=== PATIENT | female | born 1940 | race Caucasian/White ===

== ENCOUNTER 2020-05-26 14:50 | Outpatient (REF) | payer MEDICARE, SELFPAY ==
[2020-05-26 15:39] LABS: MANUAL DIFF FLAG NO
[2020-05-26 15:42] LABS: Basophils Absolute Auto 0.1 X10*3/uL (0.0-0.2); Basophils Percent Auto 1.2 % (0-2); Eosinophils Absolute Auto 0.2 X10*3/uL (0.0-0.4); Eosinophils Percent Auto 2.7 % (0-4); Hematocrit 39.6 % (37-47); Hemoglobin 13.1 g/dl (12.0-16.0); Imm Gran Abs Auto 0.02 X10*3/uL (0.00-0.03); Imm Gran Pct Auto 0.3 % (0.0-0.4); Lymphocytes Absolute Auto 1.6 X10*3/uL (1.2-4.9); Mean Corpuscular HGB Conc 33.1 g/dl (31.0-35.0); Mean Corpuscular Hemoglobin 32.8 pg (27.0-33.0); Mean Corpuscular Volume 99.2 fL (80-98); Mean Platelet Volume 9.5 fL (9.4-12.3); Monocytes Percent Auto 17.2 % (2-11); NRBC Pct Auto 0.5 /100WBC (0.0-0.2); Neutrophils Percent Auto 51.6 % (45-73); Platelet Count 300 X10*3/uL (160-400); Red Blood Count 3.99 X10*6/uL (4.20-5.50); Red Cell Distribution Width 13.1 % (11.0-16.0); White Blood Count 5.9 X10*3/uL (4.8-10.8)
[2020-05-26 15:50] LABS: Estimated Average Glucose 128 mg/dL; Hemoglobin A1c % 6.1 %
[2020-05-26 16:26] LABS: Creatinine Urine 96.31 mg/dL; Microalbum/Creatinine Ratio Ur 7.2 ug/mg cr
[2020-05-26 17:14] LABS: Alanine Aminotransferase 27 U/L (0-31); Albumin Level 4.2 g/dL (3.5-5.0); Alkaline Phosphatase 56 U/L (39-117); Anion Gap 12 (12-20); Aspartate Amino Transferase 22 U/L (5-31); Bilirubin Total 0.4 mg/dL (0.0-1.0); Blood Urea Nitrogen 25 mg/dL (9-16); Carbon Dioxide 28 mmol/L (22-29); Chloride 103 mmol/L (96-108); Estimated Glomerular Filt Rate 60; Glucose Random 96 mg/dL (60-115); Potassium 4.4 mmol/l (3.3-5.1); Sodium 139 mmol/L (135-145); Total Protein 6.6 g/dL (6.5-8.0)
== END 2020-05-26 14:51 | disposition home or self-care (01) ==
LOC: HO.LAB 14:50
PROVIDERS: PCP Internal Medicine; Visit Provider Internal Medicine
DX: E11.9 Type 2 diabetes mellitus without complications (principal); I10 Essential (primary) hypertension; E78.00 Pure hypercholesterolemia, unspecified
CPT/HCPCS: 36415; 80053; 82043; 83036; 85025

== ENCOUNTER 2020-10-02 11:12 | Outpatient (REF) | payer MEDICARE, SELFPAY ==
[2020-10-02 13:58] LABS: MANUAL DIFF FLAG NO
[2020-10-02 14:06] LABS: Glucose Urine UA NEG (NEG); Leukocyte Esterase Urine NEG (NEG); Nitrite Urine NEG (NEG); Specific Gravity - Urine <= 1.005 (1.005-1.025); Urine Blood NEG (NEG); Urine Ketones NEG (NEG); Urine Protein NEG (NEG-TRACE)
[2020-10-02 14:07] LABS: Appearance Urine CLEAR; Color Urine YELLOW
[2020-10-02 14:09] LABS: Basophils Absolute Auto 0.1 X10*3/uL (0.0-0.2); Basophils Percent Auto 0.7 % (0-2); Eosinophils Percent Auto 0.1 % (0-4); Hematocrit 40.2 % (37-47); Hemoglobin 12.9 g/dl (12.0-16.0); Imm Gran Abs Auto 0.01 X10*3/uL (0.00-0.03); Imm Gran Pct Auto 0.1 % (0.0-0.4); Lymphocytes Absolute Auto 1.5 X10*3/uL (1.2-4.9); Lymphocytes Percent Auto 20.9 % (20-40); Mean Corpuscular HGB Conc 32.1 g/dl (31.0-35.0); Mean Corpuscular Hemoglobin 32.6 pg (27.0-33.0); Mean Corpuscular Volume 101.5 fL (80-98); Mean Platelet Volume 9.8 fL (9.4-12.3); Monocytes Percent Auto 14.7 % (2-11); Neutrophils Absolute Auto 4.4 X10*3/uL (2.0-8.3); Neutrophils Percent Auto 63.5 % (45-73); Platelet Count 295 X10*3/uL (160-400); Red Blood Count 3.96 X10*6/uL (4.20-5.50); Red Cell Distribution Width 12.9 % (11.0-16.0)
[2020-10-02 14:15] LABS: Estimated Average Glucose 131 mg/dL; Hemoglobin A1c % 6.2 %
[2020-10-02 14:33] LABS: Alanine Aminotransferase 25 U/L (0-31); Albumin Level 4.1 g/dL (3.5-5.0); Alkaline Phosphatase 58 U/L (39-117); Anion Gap 14 (12-20); Aspartate Amino Transferase 20 U/L (5-31); Bilirubin Total 0.5 mg/dL (0.0-1.0); Blood Urea Nitrogen 22 mg/dL (9-16); Calcium 9.4 mg/dL (8.4-10.2); Carbon Dioxide 29 mmol/L (22-29); Chloride 102 mmol/L (96-108); Cholesterol 176 mg/dL; Estimated Glomerular Filt Rate > 60; Glucose Random 74 mg/dL (60-115); Potassium 4.3 mmol/L (3.3-5.1); Sodium 141 mmol/L (135-145); Total Protein 6.7 g/dL (6.5-8.0)
[2020-10-02 15:47] LABS: Creatinine Urine 29.68 mg/dL; Microalbumin Urine < 5.0 mg/L
== END 2020-10-02 11:13 | disposition home or self-care (01) ==
LOC: HO.10HDL 11:12
PROVIDERS: Visit Provider Internal Medicine
DX: E11.9 Type 2 diabetes mellitus without complications (principal); I10 Essential (primary) hypertension; J30.1 Allergic rhinitis due to pollen
CPT/HCPCS: 36415; 80053; 81003; 82043; 82465; 83036; 85025

== ENCOUNTER 2021-03-05 09:43 | Outpatient (REF) | payer MEDICARE, SELFPAY ==
[2021-03-05 10:14] LABS: MANUAL DIFF FLAG NO
[2021-03-05 10:23] LABS: Basophils Absolute Auto 0.1 X10*3/uL (0.0-0.2); Hematocrit 37.3 % (37-47); Hemoglobin 12.5 g/dl (12.0-16.0); Imm Gran Abs Auto 0.01 X10*3/uL (0.00-0.03); Imm Gran Pct Auto 0.1 % (0.0-0.4); Lymphocytes Absolute Auto 1.3 X10*3/uL (1.2-4.9); Lymphocytes Percent Auto 17.8 % (20-40); Mean Corpuscular HGB Conc 33.5 g/dl (31.0-35.0); Mean Corpuscular Hemoglobin 32.6 pg (27.0-33.0); Mean Corpuscular Volume 97.4 fL (80-98); Mean Platelet Volume 9.6 fL (9.4-12.3); Monocytes Percent Auto 13.6 % (2-11); Neutrophils Absolute Auto 4.7 X10*3/uL (2.0-8.3); Neutrophils Percent Auto 67.5 % (45-73); Platelet Count 303 X10*3/uL (160-400); Red Blood Count 3.83 X10*6/uL (4.20-5.50)
[2021-03-05 10:55] LABS: Alanine Aminotransferase 27 U/L (0-31); Alkaline Phosphatase 53 U/L (39-117); Anion Gap 13 (12-20); Aspartate Amino Transferase 21 U/L (5-31); Bilirubin Total 0.3 mg/dL (0.0-1.0); Blood Urea Nitrogen 26 mg/dL (9-16); Calcium 9.6 mg/dL (8.4-10.2); Carbon Dioxide 27 mmol/L (22-29); Chloride 106 mmol/L (96-108); Estimated Glomerular Filt Rate > 60; Glucose Random 114 mg/dL (60-115); Potassium 4.6 mmol/L (3.3-5.1); Sodium 141 mmol/L (135-145); Total Protein 6.3 g/dL (6.5-8.0)
[2021-03-05 11:05] LABS: Estimated Average Glucose 131 mg/dL; Hemoglobin A1c % 6.2 %
== END 2021-03-05 09:44 | disposition home or self-care (01) ==
LOC: HO.10HDL 09:43
PROVIDERS: Visit Provider Internal Medicine
DX: E11.9 Type 2 diabetes mellitus without complications (principal); I10 Essential (primary) hypertension
CPT/HCPCS: 36415; 80053; 83036; 85025

== ENCOUNTER 2021-09-19 14:09 | Outpatient (REF) | payer MEDICARE, SELFPAY ==
[2021-09-19 14:26] LABS: MANUAL DIFF FLAG NO
[2021-09-19 14:57] LABS: Basophils Absolute Auto 0.1 X10*3/uL (0.0-0.2); Eosinophils Absolute Auto 0.2 X10*3/uL (0.0-0.4); Eosinophils Percent Auto 2.8 % (0-4); Hematocrit 38.5 % (37.0-47.0); Hemoglobin 12.5 g/dl (12.0-16.0); Imm Gran Abs Auto 0.02 X10*3/uL (0.00-0.03); Imm Gran Pct Auto 0.3 % (0.0-0.4); Lymphocytes Absolute Auto 1.5 X10*3/uL (1.2-4.9); Lymphocytes Percent Auto 21.8 % (20-40); Mean Corpuscular HGB Conc 32.5 g/dl (31.0-35.0); Mean Corpuscular Hemoglobin 32.1 pg (27.0-33.0); Mean Platelet Volume 9.6 fL (9.4-12.3); Monocytes Absolute Auto 0.9 X10*3/uL (0.1-1.2); Monocytes Percent Auto 13.1 % (2-11); Neutrophils Absolute Auto 4.1 x10*3/uL (2.0-8.3); Platelet Count 303 X10*3/uL (160-400); Red Blood Count 3.89 X10*6/uL (4.20-5.50); Red Cell Distribution Width 13.2 % (11.0-16.0); White Blood Count 6.7 X10*3/uL (4.8-10.8)
[2021-09-19 15:05] LABS: Estimated Average Glucose 120 mg/dL; Hemoglobin A1c % 5.8 %
[2021-09-19 15:42] LABS: Creatinine Urine 82.07 mg/dL; Microalbum/Creatinine Ratio Ur 12.1 ug/mg cr
[2021-09-19 15:46] LABS: Vitamin D 25-OH Total 71.9 ng/mL (>30)
[2021-09-19 16:11] LABS: Alanine Aminotransferase 24 U/L (0-31); Albumin Level 4.3 g/dL (3.5-5.0); Alkaline Phosphatase 56 U/L (39-117); Anion Gap 15 (12-20); Aspartate Amino Transferase 23 U/L (5-31); Bilirubin Total 0.4 mg/dL (0.0-1.0); Blood Urea Nitrogen 25 mg/dL (9-16); Calcium 10.8 mg/dL (8.4-10.2); Carbon Dioxide 27 mmol/L (22-29); Chloride 102 mmol/L (96-108); Cholesterol 199 mg/dL; Estimated Glomerular Filt Rate > 60; Glucose Random 96 mg/dL (60-115); Potassium 4.4 mmol/L (3.3-5.1); Sodium 140 mmol/L (135-145); Total Protein 6.9 g/dL (6.5-8.0)
== END 2021-09-19 14:10 | disposition home or self-care (01) ==
LOC: HO.LAB 14:09
PROVIDERS: PCP Internal Medicine; Visit Provider Internal Medicine
DX: E11.9 Type 2 diabetes mellitus without complications (principal); I10 Essential (primary) hypertension; J45.909 Unspecified asthma, uncomplicated; M81.0 Age-related osteoporosis without current pathological fracture
CPT/HCPCS: 36415; 80053; 82043; 82306; 82465; 83036; 85025

== ENCOUNTER 2022-01-23 11:12 | Outpatient (REF) | payer MEDICARE, SELFPAY ==
[2022-01-23 13:39] LABS: Basophils Absolute Auto 0.1 X10*3/uL (0.0-0.2); Basophils Percent Auto 1.1 % (0-2); Eosinophils Absolute Auto 0.2 X10*3/uL (0.0-0.4); Eosinophils Percent Auto 2.4 % (0-4); Hematocrit 37.2 % (37.0-47.0); Hemoglobin 12.4 g/dl (12.0-16.0); Imm Gran Abs Auto 0.02 X10*3/uL (0.00-0.03); Imm Gran Pct Auto 0.3 % (0.0-0.4); Lymphocytes Absolute Auto 1.3 X10*3/uL (1.2-4.9); Lymphocytes Percent Auto 19.8 % (20-40); MANUAL DIFF FLAG NO; Mean Corpuscular HGB Conc 33.3 g/dl (31.0-35.0); Mean Corpuscular Volume 98.9 fL (80.0-98.0); Mean Platelet Volume 9.8 fL (9.4-12.3); Monocytes Absolute Auto 0.9 X10*3/uL (0.1-1.2); Monocytes Percent Auto 13.1 % (2-11); Neutrophils Absolute Auto 4.2 x10*3/uL (2.0-8.3); Neutrophils Percent Auto 63.3 % (45-73); Platelet Count 293 X10*3/uL (160-400); Red Blood Count 3.76 X10*6/uL (4.20-5.50); Red Cell Distribution Width 13.2 % (11.0-16.0); White Blood Count 6.7 X10*3/uL (4.8-10.8)
[2022-01-23 13:52] LABS: Estimated Average Glucose 123 mg/dL; Hemoglobin A1c % 5.9 %
[2022-01-23 14:00] LABS: Alanine Aminotransferase 23 U/L (0-31); Albumin Level 4.1 g/dL (3.5-5.0); Alkaline Phosphatase 52 U/L (39-117); Anion Gap 10 (12-20); Aspartate Amino Transferase 21 U/L (5-31); Bilirubin Total 0.5 mg/dL (0.0-1.0); Blood Urea Nitrogen 24 mg/dL (9-16); Calcium 9.4 mg/dL (8.4-10.2); Carbon Dioxide 29 mmol/L (22-29); Chloride 103 mmol/L (96-108); Estimated Glomerular Filt Rate > 60; Glucose Random 109 mg/dL (60-115); Potassium 4.3 mmol/L (3.3-5.1); Sodium 138 mmol/L (135-145); Total Protein 6.6 g/dL (6.5-8.0)
== END 2022-01-23 11:13 | disposition home or self-care (01) ==
LOC: HO.10HDL 11:12
PROVIDERS: Visit Provider Internal Medicine
DX: E11.9 Type 2 diabetes mellitus without complications (principal); I10 Essential (primary) hypertension
CPT/HCPCS: 36415; 80053; 83036; 85025

== ENCOUNTER 2022-04-24 12:58 | Outpatient (REF) | payer MEDICARE, SELFPAY ==
[2022-04-24 14:10] LABS: MANUAL DIFF FLAG NO
[2022-04-24 14:14] LABS: Basophils Absolute Auto 0.1 X10*3/uL (0.0-0.2); Basophils Percent Auto 0.8 % (0-2); Eosinophils Absolute Auto 0.2 X10*3/uL (0.0-0.4); Eosinophils Percent Auto 3.1 % (0-4); Hematocrit 37.9 % (37.0-47.0); Hemoglobin 12.9 g/dl (12.0-16.0); Imm Gran Abs Auto 0.02 X10*3/uL (0.00-0.03); Imm Gran Pct Auto 0.3 % (0.0-0.4); Lymphocytes Absolute Auto 1.3 X10*3/uL (1.2-4.9); Mean Corpuscular Hemoglobin 32.9 pg (27.0-33.0); Mean Corpuscular Volume 96.7 fL (80.0-98.0); Mean Platelet Volume 10.1 fL (9.4-12.3); Monocytes Absolute Auto 0.9 X10*3/uL (0.1-1.2); Monocytes Percent Auto 12.7 % (2-11); Neutrophils Absolute Auto 4.6 x10*3/uL (2.0-8.3); Neutrophils Percent Auto 65.1 % (45-73); Platelet Count 318 X10*3/uL (160-400); Red Blood Count 3.92 X10*6/uL (4.20-5.50); Red Cell Distribution Width 12.7 % (11.0-16.0); White Blood Count 7.1 X10*3/uL (4.8-10.8)
[2022-04-24 14:29] LABS: Estimated Average Glucose 123 mg/dL; Hemoglobin A1c % 5.9 %
[2022-04-24 14:42] LABS: Creatinine Urine 68.74 mg/dL; Microalbum/Creatinine Ratio Ur 10.1 ug/mg cr
[2022-04-24 14:44] LABS: Alanine Aminotransferase 17 U/L (0-31); Albumin Level 4.2 g/dL (3.5-5.0); Alkaline Phosphatase 52 U/L (39-117); Anion Gap 17 (12-20); Aspartate Amino Transferase 20 U/L (5-31); Bilirubin Total 0.4 mg/dL (0.0-1.0); Blood Urea Nitrogen 23 mg/dL (9-16); Calcium 10.4 mg/dL (8.4-10.2); Carbon Dioxide 26 mmol/L (22-29); Chloride 101 mmol/L (96-108); Cholesterol 193 mg/dL; Estimated Glomerular Filt Rate > 60; Glucose Random 96 mg/dL (60-115); Potassium 4.2 mmol/L (3.3-5.1); Sodium 140 mmol/L (135-145); Total Protein 6.8 g/dL (6.5-8.0)
== END 2022-04-24 12:59 | disposition home or self-care (01) ==
LOC: HO.10HDL 12:58
PROVIDERS: Visit Provider Internal Medicine
DX: E11.9 Type 2 diabetes mellitus without complications (principal); E78.00 Pure hypercholesterolemia, unspecified; I10 Essential (primary) hypertension
CPT/HCPCS: 36415; 80053; 82043; 82465; 83036; 85025

== ENCOUNTER 2022-10-16 11:55 | Outpatient (REF) | payer MEDICARE, SELFPAY ==
[2022-10-16 14:12] LABS: MANUAL DIFF FLAG NO
[2022-10-16 14:22] LABS: Basophils Absolute Auto 0.1 X10*3/uL (0.0-0.2); Hematocrit 38.1 % (37.0-47.0); Hemoglobin 12.6 g/dl (12.0-16.0); Imm Gran Abs Auto 0.02 X10*3/uL (0.00-0.03); Imm Gran Pct Auto 0.3 % (0.0-0.4); Lymphocytes Absolute Auto 1.3 X10*3/uL (1.2-4.9); Mean Corpuscular HGB Conc 33.1 g/dl (31.0-35.0); Mean Corpuscular Hemoglobin 32.2 pg (27.0-33.0); Mean Corpuscular Volume 97.4 fL (80.0-98.0); Monocytes Absolute Auto 0.9 X10*3/uL (0.1-1.2); Monocytes Percent Auto 12.7 % (2-11); Neutrophils Absolute Auto 4.8 x10*3/uL (2.0-8.3); Platelet Count 292 X10*3/uL (160-400); Red Blood Count 3.91 X10*6/uL (4.20-5.50); Red Cell Distribution Width 13.1 % (11.0-16.0); White Blood Count 7.1 X10*3/uL (4.8-10.8)
[2022-10-16 14:41] LABS: Estimated Average Glucose 117 mg/dL; Hemoglobin A1c % 5.7 %
[2022-10-16 14:45] LABS: Alanine Aminotransferase 16 U/L (0-31); Alkaline Phosphatase 52 U/L (39-117); Anion Gap 14 (12-20); Aspartate Amino Transferase 19 U/L (5-31); Bilirubin Total 0.4 mg/dL (0.0-1.0); Blood Urea Nitrogen 20 mg/dL (9-16); Calcium 9.8 mg/dL (8.4-10.2); Carbon Dioxide 29 mmol/L (22-29); Chloride 105 mmol/L (96-108); Estimated Glomerular Filt Rate > 60; Glucose Random 84 mg/dL (60-115); Potassium 4.5 mmol/L (3.3-5.1); Sodium 143 mmol/L (135-145); Total Protein 6.4 g/dL (6.5-8.0)
[2022-10-16 15:13] LABS: Creatinine Urine 38.38 mg/dL
[2022-10-16 15:17] LABS: Folate 15.2 ng/mL (> or = 4.0); Free T4 (Free Thyroxine) 0.93 ng/dL (0.71-1.85); Thyroid Stimulating Hormone 1.28 uIU/mL (0.32-4.0); Vitamin B12 1261 pg/mL (200-900)
== END 2022-10-16 11:56 | disposition home or self-care (01) ==
LOC: HO.10HDL 11:55
PROVIDERS: Visit Provider Internal Medicine
DX: E11.9 Type 2 diabetes mellitus without complications (principal); I10 Essential (primary) hypertension; K21.9 Gastro-esophageal reflux disease without esophagitis
CPT/HCPCS: 36415; 80053; 82043; 82607; 82746; 83036; 84439; 84443; 85025

== ENCOUNTER 2023-03-26 16:41 | Emergency (ER) | payer MEDICARE, SELFPAY ==
--- NOTE | ~2023-03-26 | MR_ITS ---
EXAMINATION: MRI ORBIT WITHOUT AND WITH CONTRAST CLINICAL INFORMATION: Abnormal CT of the left orbit. COMPARISON: CT face 03/26/2023. TECHNIQUE: Multiplanar multisequence MRI of the orbit was performed without and with contrast. A total of 7 mL Gadavist was intravenously administered. FINDINGS: There is redemonstration of a well-defined 10 mm smoothly marginated lesion within the left orbit just medial to the superior oblique muscle. The lesion demonstrates diffuse homogeneous enhancement on the postcontrast acquisition. There is no surrounding infiltration or mass effect. The orbits are otherwise unremarkable. A smaller but similar signal intensity lesion is seen within the medial aspect of the left orbit just adjacent to the medial rectus muscle measuring up to 5 mm a third similar signal intensity lesion is seen along the medial aspect of the left orbit adjacent to the medial rectus muscle. No optic nerve signal abnormality is seen. There are bilateral lens replacements. The known nasal bone fractures are better defined on the prior facial bone CT. There is no acute infarction, hemorrhage, or parenchymal mass. Moderate to severe chronic microangiopathic changes are seen in the cerebral white matter in addition to diffuse brain parenchymal volume loss. No enhancing intracranial lesions are seen. MR/MR orbits face neck wo/w con IMPRESSION: 1. The previously described 10 mm lesion within the left orbit just medial to the superior oblique muscle demonstrates diffuse homogeneous enhancement and is most compatible with a varix with the additional considerations being cavernous hemangioma or schwannoma but considered less likely. 2 additional but smaller lesions with similar signal intensity are seen within the right and left orbit likely representing additional varices. No optic nerve signal abnormality is seen. 2. No acute intracranial abnormality. Moderate to severe chronic microangiopathic changes and diffuse brain parenchymal volume loss. 3. Known nasal bone fractures are better defined on the prior facial bone CT.
--- NOTE | ~2023-03-26 | CT_ITS ---
EXAMINATION: CT HEAD WITHOUT CONTRAST CT FACE WITHOUT CONTRAST CT CERVICAL SPINE WITHOUT CONTRAST CLINICAL INFORMATION: Fall and head injury. COMPARISON: No relevant prior imaging. TECHNIQUE: [employer] images were obtained. CT imaging of the head, face, and cervical spine was performed without contrast. Data was reformatted into multiplanar images at the acquisition workstation. This CT examination was performed using dose optimization techniques as appropriate, including one or more of the following: Automated exposure control, iterative reconstruction, and adjustment of technique factors (mA and/or kVp) according to patient size (this includes techniques or standardized protocols for targeted exams where dose is matched to indication/reason for exam). Fleischner Society criteria for the followup of incidental pulmonary nodules was implemented if appropriate. DLP: 1242 mGy-cm. FINDINGS: Head: There is a hematoma of the frontal scalp. The underlying calvarium is intact. No acute intracranial hemorrhage or abnormal extra-axial collection. No intracranial mass effect or midline shift. Lateral and third ventricles are proportionate to the subarachnoid spaces. No hydrocephalus. Scattered nonspecific foci of hypoattenuation are visualized within the periventricular white matter. Romero-white matter distribution is otherwise preserved and there is no evidence of acute territorial infarct. Face: There is an acute comminuted fractures nasal bones. Zygomatic arches and pterygoid processes are intact. No acute mandibular fracture. 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 Mild to moderate paranasal sinus disease primarily affecting the ethmoid air cells. There is an ovoid soft tissue density lesion located within the retro-orbital fat along the upper inner aspect of the left globe best visualized on coronal image 76 of 209 series 23 measuring approximately 1 cm in maximal diameter. Cervical spine: There is 3 mm anterolisthesis of C5 on C6 and 2 mm anterolisthesis of C4-C5. Bridging bone fuses multiple consecutive vertebral segments within the cervical spine. Specifically the C2-C3 7 vertebra are fused. Consequently there is advanced junctional spondylosis above the level of C7-T1 and the atlantodental joint including both C1-C2 facet joints. Grossly no spinal canal compromise. No evidence of acute fracture. No identifiable epidural hematoma. Visualized soft tissues of the neck are unremarkable. Lung apices are clear. CT/CT cervical spine wo IV con IMPRESSION: Head: There is a hematoma of the frontal scalp. The underlying calvarium is intact. No acute intracranial hemorrhage. There are scattered chronic small vessel ischemic changes within the periventricular white matter. No evidence of acute territorial infarct. Maxillofacial: There is an acute comminuted fracture involving the nasal bones. There is an ovoid soft tissue density lesion located within the retro-orbital fat along the upper inner aspect of the left globe. 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 The possibility of a schwannoma can also be considered. Correlation with prior imaging is recommended if available. Otherwise a dedicated MRI of the orbits can be obtained without and with contrast for better anatomic characterization of this finding. Cervical spine: There is no evidence of acute fracture and no posttraumatic spinal subluxation. There is however advanced junctional spondylosis as described above. Bridging bone fuses multiple consecutive vertebral segments within the cervical spine. Specifically the C2-C7 vertebra are fused. Consequently there is severe junctional spondylosis above and below the fused segments at the levels of C1-C2 and C7-T1. Grossly no spinal canal compromise.
[2023-03-26 17:05] VITALS: BP 165/95; BP 179/90; PULSE 82; PULSE 85; RESP 18; TEMP 36.9; O2SAT 100; O2SAT 96; BMI 25.6
--- NOTE | 2023-03-26 17:23 | ED.GENADULT ---
HPI - General Adult General Chief complaint: Fall Stated complaint: Mechanical fall from standing w/ headstrike Time Seen by Provider: 03/26/23 17:03 Source: patient and EMS Mode of arrival: EMS Limitations: no limitations History of Present Illness HPI narrative: 82-year-old female Brought in by ambulance for evaluation after a mechanical fall. patient live in the apartment alone independently usually use a cane patient tripped on object on the floor fell forward hitting her face causing small cut on the nose bridge and active bleeding, no LOC, no CP, no SOB, Patient declined any syncopal episodes. No abdominal pain no extremities pain or deformity. Patient declined using AC. Related Data Allergies Allergy/AdvReac Type Severity Reaction Status Date / Time gabapentin [From NEURONTIN] Allergy Unknown RASH Unverified 03/23/20 15:31 Review of Systems Review of Systems: all other systems are reviewed and are negative Constitutional: Reports as per HPI and Reports no additional constitutional complaints Eyes: Reports as per HPI and Reports no additional eye complaints Reports system reviewed and no additional complaints, except as documented Cardiovascular: Reports as per HPI and Reports no additional cardiovascular complaints Respiratory: Reports as per HPI and Reports no additional respiratory complaints Gastrointestinal: Reports as per HPI and Reports no additional gastrointestinal complaints Genitourinary: Reports no additional female genitourinary complaints Musculoskeletal: Reports no additional musculoskeletal complaints Skin/Breast: Reports system reviewed and no additional complaints, except as docu Psychiatric: Reports no additional psychiatric complaints Endocrine: Reports no additional endocrine complaints Hematologic/Lymphatic: Reports no additional hematologic/lymphatic complaints Allergic/Immunologic: Reports no additional allergic/immunologic complaints Reports system reviewed and no additional complaints, except as documented and Reports Abnormal speech present [facility] [place] Social History Social History Advance Directives: No Advance Directives Information Provided: No Physical Exam ED Vital Signs: Vital Signs - 24 hr 03/26/23 23:24 03/27/23 06:48 03/27/23 13:15 Temperature 98.0 F 98.8 F Pulse Rate 75 74 74 Respiratory Rate 16 16 16 Blood Pressure 160/83 H 149/71 H 151/73 H Pulse Oximetry 98 100 99 Oxygen Delivery Method Room Air Room Air Room Air BMI result Body Mass Index 25.6 Vital signs have been reviewed and appear to be correct. Blood pressure elevated. Heart rate normal. Respiratory rate normal. Temperature normal. Oxygen saturation normal. Appearance: Alert. Oriented X3. No acute distress. Head: bilateral raccoon eyes, 3 x 4 cm area of forehead hematoma. Eyes: PERRLA. EOMI. Conjunctiva and sclera normal. Eyelids normal. ENT: 0.5 cm laceration at the nasal bridge with active arterial bleeding. Neck: Normal inspection. Neck supple. FROM. No adenopathy. Thyroid Normal. No meningeal signs. No neck mass noted. CVS: Normal heart rate and rhythm. Heart sound normal. No murmurs noted. Pulses normal throughout. Respiratory: No respiratory distress. Painless inspiration. Breath sounds normal. No wheezes/rales/rhonchi noted. Chest nontender. No accessory muscle usage noted or decreased air movement noted. Abdomen: Soft and nontender. Bowel sounds normal in all 4 quadrants. No distention noted. No organomegaly noted. No visible injury noted. Back: No CVA tenderness. Full range of motion noted. Skin: Skin warm and dry. Normal skin color. Normal skin turgor. No rashes/lesions/lacerations noted. Extremities: No lower extremity edema. Extremities exhibit normal range of motion. Extremities nontender. Neuro: Oriented X 3. Cranial nerve exam: II-XII are grossly intact No motor deficit. No sensory deficit. Reflexes normal. Course Reevaluation(s) Reevaluation #1: 82-year-old female came in after sustained a mechanical fall causing nose fracture and a bleeding nasal bridge laceration that required immediate repair to stop the bleeding, CT of the maxillofacial is revealing retro-orbital left lesion that further MRI was recommended, patient will be kept in the emergency department under physician observation for possible also placement. Will start physician observation. Time: 19:07 Reevaluation #2: patient was seen and evaluated by case management /PT patient can go home with arrange for VNA. 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 Patient fully understood my instruction and will contact her PCP tomorrow. Time: 19:07 Medications Administered Discontinued Medications Generic Name Dose Route Start Last Admin Trade Name Freq PRN Reason Stop Dose Admin Acetaminophen 650 mg 03/27/23 04:23 03/27/23 04:28 Acetaminophen 325 Mg Tablet PO 09/21/23 04:24 650 mg ONCE ONE Administration Gadobutrol 7.5 ml 03/27/23 14:47 03/27/23 14:47 Gadobutrol 7.5 Ml Vial IVPUSH 03/27/23 14:48 7 ml ONCE ONE Administration Procedures Laceration Laceration 1: Site: face ( At the nose bridge) Size (cm): 1 Description: linear Depth: [id number] Local Anesthetic: lidocaine 1% Amount of anesthesia used (mL): 3 Skin layer closed with: nylon Size (cm): 6-0 Number of sutures: 2 Technique: simple, interrupted Medical Decision Making Differential Diagnosis Differential Diagnoses: The differential diagnosis associated with the presentation includes ( Mechanical fall, intracranial bleed, skull fracture, facial fracture, cervical spine injury.) Admission/Observation Consideration of admission/observation: Escalation of care including admission/observation considered Lab Data MDM Lab Attestation statement: I reviewed the patient's lab results. Independent Interpretation I performed an independent interpretation of an: CT Scan ( Head/maxillofacial/ cervical spine:Head: There is a hematoma of the frontal scalp. The underlying calvarium is intact. No acute intracranial hemorrhage. There are scattered chronic small vessel ischemic changes within the periventricular white matter. No evidence of acute territorial infarct. Ma) Radiology Impression Discussion of test interpretation with radiology: I have reviewed the radiologist's reading. Discharge Plan Discharge Clinical Impression: Closed fracture nasal bone, Closed head injury, Mass of eye, left Patient Disposition: Home, Self-Care Instructions: Nasal Fracture (ED) Additional Instructions: follow-up with your PCP to get an manager of construction referral for abnormal MRI that show left eye mass. Referrals: Tyson Goff MD [Primary Care Provider] -
--- NOTE | 2023-03-26 18:00 | PC.NURSE ---
Pt nasal area sutured at bedside with MD, pt cleaned of bloody cloths and face cleaned up. Pt reporting no pain despite facial bruising and sutures. She is A/Ox4. moving all extremities equal, no numbness/tingling present
[2023-03-26 18:24] VITALS: BP 167/88; PULSE 84; RESP 16; TEMP 36.6; O2SAT 100
--- NOTE | 2023-03-26 21:33 | PC.NURSE ---
Pt ambulated with walker, gait belt, tech and RN. Pt ambulated with a steady gait. Pt reported no dizziness, lightheadedness, or pain. Pt did have some trouble seeing where she was going.Pt stated she usually has some trouble seeing, but it is increased with swelling and bruising around her eyes. Pt was assited back to bed, given clean linens, and has a purewick in place. Pt has an IV in the right AC. Pt is A&Ox4, GCS 15 at this time. Pt stated she thinks it would be beefcial to stay overnight and be evaluated by PT in the morning, as she lives alone at home. I discussed this with Dr Jean-Baptiste who agreed with this plan. Pt is also scheduled to get an MRI tomorrow morning.
[2023-03-26 23:24] VITALS: BP 160/83; PULSE 75; RESP 16; O2SAT 98
[2023-03-27] MEDS: Acetaminophen 325 MG TABLET 650 MG PO (04:28)
[2023-03-27 06:48] VITALS: BP 149/71; PULSE 74; RESP 16; TEMP 36.7; O2SAT 100
--- NOTE | 2023-03-27 08:14 | PC.NURSE ---
assumed care of pt at 0700. report taken from GEORGINA Mcnally. pt a&o x4, pleasant, calm, and cooperative. pt appears significantly bruised to face with swelling around both eyes. pt stitched up at bridge of nose. not bleeding. pt denies any pain. purewick in place. awaiting breakfast tray. pt concerned about who can pick her up when she gets discharged. asked this RN to look up neighbor's phone number. Jesus Huffman (pt neighbor): [phone]
--- NOTE | 2023-03-27 09:38 | PC.NURSE ---
pt's neighbor, Jesus Barrow, came to visit pt. pt gave consent to update neighbor on pt care plan/status. phone number previously documented.
[2023-03-27 13:15] VITALS: BP 151/73; PULSE 74; RESP 16; TEMP 37.1; O2SAT 99
--- NOTE | 2023-03-27 14:25 | PC.NURSE ---
pt off unit to MRI
[2023-03-27] MEDS: gadobutroL 7.5 ML VIAL IVPUSH (14:47)
--- NOTE | 2023-03-27 15:53 | PC.NURSE ---
pt back from MRI and given bed bath by nena Ford. bed linen full change. call parker within pt reach. all needs met jael.
--- NOTE | 2023-03-27 16:13 | MHC.CM.ED ---
Referrals for home VNA made: awaiting agency acceptance at this time.
--- NOTE | 2023-03-28 09:57 | MHC.CM.ED ---
Pt left the ED on 03/27: PT recommended home services: no orders by ED provider. Call placed to pt's PCP, Dr. Goff: They will sign/write for service orders from [facility]. [facility] correspondence w/NA on above. Awaiting determination.
== END 2023-03-27 19:19 | disposition home or self-care (01) ==
PROVIDERS: Emergency Provider Emergency Medicine; PCP Internal Medicine
DX: S02.2XXA Fracture of nasal bones, initial encounter for closed fracture (principal); S09.90XA Unspecified injury of head, initial encounter; S01.81XA Laceration without foreign body of other part of head, initial encounter; R51.9 Headache, unspecified; M54.2 Cervicalgia; H57.12 Ocular pain, left eye; W01.10XA Fall on same level from slipping, tripping and stumbling with subsequent striking against unspecified object, initial encounter; Y93.9 Activity, unspecified; Y92.9 Unspecified place or not applicable; Y99.9 Unspecified external cause status
CPT/HCPCS: 12051; 70450; 70486; 70543; 72125; 96374; 97161; 99284; 99285; A9585

== ENCOUNTER 2023-09-29 16:04 | Outpatient (REF) | payer MEDICARE, SELFPAY ==
[2023-09-29 16:32] LABS: MANUAL DIFF FLAG NO
[2023-09-29 17:24] LABS: Appearance Urine Clear; Color Urine Yellow; Glucose Urine UA Negative (Negative); Leukocyte Esterase Urine Negative (Negative); Nitrite Urine Negative (Negative); Specific Gravity - Urine 1.015 (1.005-1.025); Urine Blood Negative (Negative); Urine Ketones 15 mg/dL (Negative); Urine Protein Negative (Neg-Trace)
[2023-09-29 17:53] LABS: Basophils Absolute Auto 0.1 X10*3/uL (0.0-0.2); Eosinophils Absolute Auto 0.1 X10*3/uL (0.0-0.4); Eosinophils Percent Auto 2.4 % (0-4); Hematocrit 38.6 % (37.0-47.0); Hemoglobin 12.6 g/dl (12.0-16.0); Imm Gran Abs Auto 0.02 X10*3/uL (0.00-0.03); Imm Gran Pct Auto 0.3 % (0.0-0.4); Lymphocytes Absolute Auto 1.3 X10*3/uL (1.2-4.9); Lymphocytes Percent Auto 22.2 % (20-40); Mean Corpuscular HGB Conc 32.6 g/dl (31.0-35.0); Mean Corpuscular Hemoglobin 32.4 pg (27.0-33.0); Mean Corpuscular Volume 99.2 fL (80.0-98.0); Mean Platelet Volume 10.2 fL (9.4-12.3); Monocytes Absolute Auto 0.7 X10*3/uL (0.1-1.2); Monocytes Percent Auto 12.7 % (2-11); Neutrophils Absolute Auto 3.5 x10*3/uL (2.0-8.3); Neutrophils Percent Auto 61.4 % (45-73); Platelet Count 279 X10*3/uL (160-400); Red Blood Count 3.89 X10*6/uL (4.20-5.50); Red Cell Distribution Width 13.1 % (11.0-16.0); White Blood Count 5.8 X10*3/uL (4.8-10.8)
[2023-09-29 18:04] LABS: Estimated Average Glucose 100 mg/dL; Hemoglobin A1c % 5.1 % (<6.0)
[2023-09-29 18:24] LABS: Creatinine Urine 47.44 mg/dL; Microalbum/Creatinine Ratio Ur 23.1 ug/mg cr (<30)
[2023-09-29 18:26] LABS: B Type Natriuretic Peptide 67 pg/mL (<100)
[2023-09-29 18:33] LABS: Alanine Aminotransferase 20 U/L (0-31); Albumin Level 4.2 g/dL (3.5-5.0); Alkaline Phosphatase 68 U/L (39-117); Anion Gap 13 (12-20); Aspartate Amino Transferase 24 U/L (5-31); Bilirubin Total 0.5 mg/dL (0.0-1.0); Blood Urea Nitrogen 20 mg/dL (9-16); Calcium 9.9 mg/dL (8.4-10.2); Carbon Dioxide 28 mmol/L (22-29); Chloride 104 mmol/L (96-108); Cholesterol 207 mg/dL (<200); Estimated Glomerular Filt Rate > 60; Glucose Random 102 mg/dL (60-115); Sodium 141 mmol/L (135-145); Total Protein 7.2 g/dL (6.5-8.0)
[2023-09-29 18:47] LABS: Thyroid Stimulating Hormone 1.95 uIU/mL (0.32-4.0)
== END 2023-09-29 16:05 | disposition home or self-care (01) ==
LOC: HO.LAB 16:04
PROVIDERS: PCP Internal Medicine; Visit Provider Internal Medicine
DX: E11.9 Type 2 diabetes mellitus without complications (principal); I10 Essential (primary) hypertension; R60.0 Localized edema; R82.90 Unspecified abnormal findings in urine
CPT/HCPCS: 36415; 80053; 81003; 82043; 82465; 82570; 83036; 83880; 84443; 85025; 87086

== ENCOUNTER 2024-03-22 06:18 | Outpatient (REF) | payer SELFPAY ==
[2024-03-22 06:10] LABS: MANUAL DIFF FLAG NO
[2024-03-22 06:58] LABS: Basophils Absolute Auto 0.1 X10*3/uL (0.0-0.2); Basophils Percent Auto 0.8 % (0-2); Eosinophils Absolute Auto 0.1 X10*3/uL (0.0-0.4); Eosinophils Percent Auto 2.1 % (0-4); Hematocrit 36.7 % (37.0-47.0); Hemoglobin 12.7 g/dl (12.0-16.0); Imm Gran Abs Auto 0.03 X10*3/uL (0.00-0.03); Imm Gran Pct Auto 0.5 % (0.0-0.4); Lymphocytes Absolute Auto 1.6 X10*3/uL (1.2-4.9); Lymphocytes Percent Auto 24.6 % (20-40); Mean Corpuscular HGB Conc 34.6 g/dl (31.0-35.0); Mean Corpuscular Hemoglobin 32.6 pg (27.0-33.0); Mean Corpuscular Volume 94.1 fL (80.0-98.0); Mean Platelet Volume 10.2 fL (9.4-12.3); Monocytes Absolute Auto 1.1 X10*3/uL (0.1-1.2); Monocytes Percent Auto 16.7 % (2-11); Neutrophils Absolute Auto 3.5 x10*3/uL (2.0-8.3); Neutrophils Percent Auto 55.3 % (45-73); Platelet Count 343 X10*3/uL (160-400); Red Cell Distribution Width 13.2 % (11.0-16.0); White Blood Count 6.3 X10*3/uL (4.8-10.8)
[2024-03-22 07:27] LABS: Anion Gap 16 (12-20); Blood Urea Nitrogen 25 mg/dL (9-16); Calcium 9.5 mg/dL (8.4-10.2); Carbon Dioxide 21 mmol/L (22-29); Chloride 110 mmol/L (96-108); Estimated Glomerular Filt Rate > 60; Glucose Random 141 mg/dL (60-115); Potassium 3.8 mmol/L (3.3-5.1); Sodium 143 mmol/L (135-145)
== END 2024-03-22 06:19 | disposition home or self-care (01) ==
LOC: HO.MMNH1L 06:18
PROVIDERS: Visit Provider Internal Medicine
DX: I10 Essential (primary) hypertension (principal)
CPT/HCPCS: 36415; 80048; 85025

== ENCOUNTER 2024-04-19 06:46 | Outpatient (REF) | payer MEDICARE, SELFPAY ==
[2024-04-19 07:14] LABS: Basophils Percent Auto 0.4 % (0-2); Eosinophils Absolute Auto 0.1 X10*3/uL (0.0-0.4); Eosinophils Percent Auto 2.4 % (0-4); Hematocrit 32.3 % (37.0-47.0); Hemoglobin 10.7 g/dl (12.0-16.0); Imm Gran Abs Auto 0.01 X10*3/uL (0.00-0.03); Imm Gran Pct Auto 0.2 % (0.0-0.4); Lymphocytes Absolute Auto 1.5 X10*3/uL (1.2-4.9); Lymphocytes Percent Auto 32.8 % (20-40); MANUAL DIFF FLAG SCAN; Mean Corpuscular HGB Conc 33.1 g/dl (31.0-35.0); Mean Corpuscular Hemoglobin 33.1 pg (27.0-33.0); Monocytes Percent Auto 23.1 % (2-11); Neutrophils Absolute Auto 1.9 x10*3/uL (2.0-8.3); Neutrophils Percent Auto 41.1 % (45-73); Platelet Count 245 X10*3/uL (160-400); Red Blood Count 3.23 X10*6/uL (4.20-5.50); Red Cell Distribution Width 14.1 % (11.0-16.0); SCAN SMEAR FLAG 1; White Blood Count 4.5 X10*3/uL (4.8-10.8)
[2024-04-19 07:23] LABS: Anion Gap 10 (12-20); Blood Urea Nitrogen 20 mg/dL (9-16); Calcium 8.4 mg/dL (8.4-10.2); Carbon Dioxide 25 mmol/L (22-29); Chloride 109 mmol/L (96-108); Estimated Glomerular Filt Rate > 60; Glucose Random 105 mg/dL (60-115); Potassium 3.7 mmol/L (3.3-5.1); Sodium 140 mmol/L (135-145)
[2024-04-19 08:05] LABS: SLIDE REVIEW VERIFIED
== END 2024-04-19 06:47 | disposition home or self-care (01) ==
LOC: HO.MMNH1L 06:46
PROVIDERS: Visit Provider Internal Medicine
DX: I10 Essential (primary) hypertension (principal)
CPT/HCPCS: 36415; 80048; 85025

== ENCOUNTER 2024-04-21 06:07 | Outpatient (REF) | payer MEDICARE, SELFPAY ==
[2024-04-21 07:25] LABS: Free T4 (Free Thyroxine) 0.89 ng/dL (0.71-1.85); Thyroid Stimulating Hormone 2.21 uIU/mL (0.32-4.0)
[2024-04-21 07:29] LABS: Folate 7.2 ng/mL (> or = 4.0); Vitamin B12 595 pg/mL (200-900)
== END 2024-04-21 06:08 | disposition home or self-care (01) ==
LOC: HO.MMNH1L 06:07
PROVIDERS: Visit Provider Internal Medicine
DX: G93.40 Encephalopathy, unspecified (principal); E11.9 Type 2 diabetes mellitus without complications
CPT/HCPCS: 36415; 82607; 82746; 84439; 84443

== ENCOUNTER 2024-04-26 06:26 | Outpatient (REF) | payer MEDICARE, SELFPAY ==
[2024-04-26 07:06] LABS: Hematocrit 34.2 % (37.0-47.0); Hemoglobin 11.4 g/dl (12.0-16.0); Mean Corpuscular HGB Conc 33.3 g/dl (31.0-35.0); Mean Corpuscular Hemoglobin 32.9 pg (27.0-33.0); Mean Corpuscular Volume 98.6 fL (80.0-98.0); Mean Platelet Volume 9.6 fL (9.4-12.3); Platelet Count 258 X10*3/uL (160-400); Red Blood Count 3.47 X10*6/uL (4.20-5.50); Red Cell Distribution Width 14.1 % (11.0-16.0)
[2024-04-26 07:19] LABS: Anion Gap 13 (12-20); Blood Urea Nitrogen 27 mg/dL (9-16); Carbon Dioxide 25 mmol/L (22-29); Chloride 104 mmol/L (96-108); Estimated Glomerular Filt Rate 42; Glucose Random 123 mg/dL (60-115); Potassium 3.4 mmol/L (3.3-5.1); Sodium 139 mmol/L (135-145)
[2024-04-26 07:46] LABS: Band Neutrophils Percent 6 % (3-5); Lymphocytes Percent Manual 10 % (20-40); Monocytes Percent Manual 10 % (2-11); Neutrophils Percent Manual 74 % (45-73)
[2024-04-26 07:47] LABS: Platelet Estimate NORMAL (NORMAL); Platelet Morphology Comment NORMAL; RBC Morphology NORMAL
== END 2024-04-26 06:27 | disposition home or self-care (01) ==
LOC: HO.MMNH1L 06:26
PROVIDERS: Visit Provider Internal Medicine
DX: I10 Essential (primary) hypertension (principal)
CPT/HCPCS: 36415; 80048; 85007; 85025; 85027

== ENCOUNTER 2024-05-02 21:00 | Outpatient (REF) | payer MEDICARE, SELFPAY ==
[2024-05-03 10:53] LABS: CDiff Gene PCR NEGATIVE (Negative)
== END 2024-05-02 21:01 | disposition home or self-care (01) ==
LOC: HO.MMNH1L 21:00
PROVIDERS: Visit Provider Internal Medicine
DX: U07.1 COVID-19 (principal); G93.40 Encephalopathy, unspecified
CPT/HCPCS: 87493

== ENCOUNTER 2024-05-03 06:23 | Outpatient (REF) | payer MEDICARE, SELFPAY ==
[2024-05-03 06:02] LABS: MANUAL DIFF FLAG NO
[2024-05-03 07:02] LABS: Anion Gap 14 (12-20); Blood Urea Nitrogen 22 mg/dL (9-16); Calcium 9.4 mg/dL (8.4-10.2); Carbon Dioxide 23 mmol/L (22-29); Chloride 108 mmol/L (96-108); Estimated Glomerular Filt Rate > 60; Glucose Random 115 mg/dL (60-115); Potassium 3.5 mmol/L (3.3-5.1); Sodium 141 mmol/L (135-145)
[2024-05-03 07:08] LABS: Basophils Absolute Auto 0.1 X10*3/uL (0.0-0.2); Basophils Percent Auto 0.6 % (0-2); Hematocrit 31.9 % (37.0-47.0); Hemoglobin 10.7 g/dl (12.0-16.0); Imm Gran Abs Auto 0.17 X10*3/uL (0.00-0.03); Imm Gran Pct Auto 1.9 % (0.0-0.4); Lymphocytes Absolute Auto 1.3 X10*3/uL (1.2-4.9); Lymphocytes Percent Auto 14.6 % (20-40); Mean Corpuscular HGB Conc 33.5 g/dl (31.0-35.0); Mean Corpuscular Hemoglobin 32.3 pg (27.0-33.0); Mean Corpuscular Volume 96.4 fL (80.0-98.0); Mean Platelet Volume 9.3 fL (9.4-12.3); Monocytes Absolute Auto 1.5 X10*3/uL (0.1-1.2); Monocytes Percent Auto 16.5 % (2-11); Neutrophils Absolute Auto 5.8 x10*3/uL (2.0-8.3); Neutrophils Percent Auto 66.4 % (45-73); Platelet Count 555 X10*3/uL (160-400); Red Blood Count 3.31 X10*6/uL (4.20-5.50); Red Cell Distribution Width 13.3 % (11.0-16.0); White Blood Count 8.8 X10*3/uL (4.8-10.8)
== END 2024-05-03 06:24 | disposition home or self-care (01) ==
LOC: HO.MMNH1L 06:23
PROVIDERS: Visit Provider Internal Medicine
DX: U07.1 COVID-19 (principal); G93.40 Encephalopathy, unspecified
CPT/HCPCS: 36415; 80048; 85025

== ENCOUNTER 2024-05-05 05:55 | Outpatient (REF) | payer MEDICARE, SELFPAY ==
[2024-05-05 10:49] LABS: CDiff Gene PCR NEGATIVE (Negative)
== END 2024-05-05 05:56 | disposition home or self-care (01) ==
LOC: HO.MMNH1L 05:55
PROVIDERS: Visit Provider Internal Medicine
DX: U07.1 COVID-19 (principal); G93.40 Encephalopathy, unspecified; R62.7 Adult failure to thrive
CPT/HCPCS: 87493

== ENCOUNTER 2024-05-10 06:23 | Outpatient (REF) | payer MEDICARE, SELFPAY ==
[2024-05-10 07:05] LABS: Basophils Absolute Auto 0.1 X10*3/uL (0.0-0.2); Basophils Percent Auto 1.1 % (0-2); Eosinophils Absolute Auto 0.3 X10*3/uL (0.0-0.4); Eosinophils Percent Auto 4.5 % (0-4); Hematocrit 31.3 % (37.0-47.0); Hemoglobin 10.5 g/dl (12.0-16.0); Imm Gran Abs Auto 0.06 X10*3/uL (0.00-0.03); Imm Gran Pct Auto 0.9 % (0.0-0.4); Lymphocytes Absolute Auto 1.8 X10*3/uL (1.2-4.9); Lymphocytes Percent Auto 26.8 % (20-40); MANUAL DIFF FLAG SCAN; Mean Corpuscular HGB Conc 33.5 g/dl (31.0-35.0); Mean Corpuscular Hemoglobin 32.9 pg (27.0-33.0); Mean Corpuscular Volume 98.1 fL (80.0-98.0); Monocytes Absolute Auto 1.3 X10*3/uL (0.1-1.2); Monocytes Percent Auto 20.1 % (2-11); Neutrophils Absolute Auto 3.1 x10*3/uL (2.0-8.3); Neutrophils Percent Auto 46.6 % (45-73); Platelet Count 523 X10*3/uL (160-400); Red Blood Count 3.19 X10*6/uL (4.20-5.50); Red Cell Distribution Width 13.8 % (11.0-16.0); SCAN SMEAR FLAG 1; White Blood Count 6.6 X10*3/uL (4.8-10.8)
[2024-05-10 07:38] LABS: SLIDE REVIEW VERIFIED
[2024-05-10 08:08] LABS: Anion Gap 11 (12-20); Blood Urea Nitrogen 12 mg/dL (9-16); Calcium 9.1 mg/dL (8.4-10.2); Carbon Dioxide 26 mmol/L (22-29); Chloride 108 mmol/L (96-108); Estimated Glomerular Filt Rate > 60; Glucose Random 88 mg/dL (60-115); Potassium 3.7 mmol/L (3.3-5.1); Sodium 141 mmol/L (135-145)
== END 2024-05-10 06:24 | disposition home or self-care (01) ==
LOC: HO.MMNH1L 06:23
PROVIDERS: Visit Provider Internal Medicine
DX: I10 Essential (primary) hypertension (principal)
CPT/HCPCS: 36415; 80048; 85025

== ENCOUNTER 2024-05-17 06:08 | Outpatient (REF) | payer MEDICARE, SELFPAY ==
[2024-05-17 06:31] LABS: Basophils Absolute Auto 0.1 X10*3/uL (0.0-0.2); Eosinophils Absolute Auto 0.8 X10*3/uL (0.0-0.4); Eosinophils Percent Auto 15.5 % (0-4); Hematocrit 32.6 % (37.0-47.0); Hemoglobin 10.7 g/dl (12.0-16.0); Imm Gran Abs Auto 0.02 X10*3/uL (0.00-0.03); Imm Gran Pct Auto 0.4 % (0.0-0.4); Lymphocytes Absolute Auto 1.4 X10*3/uL (1.2-4.9); Lymphocytes Percent Auto 26.5 % (20-40); MANUAL DIFF FLAG SCAN; Mean Corpuscular HGB Conc 32.8 g/dl (31.0-35.0); Mean Corpuscular Hemoglobin 32.5 pg (27.0-33.0); Mean Corpuscular Volume 99.1 fL (80.0-98.0); Mean Platelet Volume 9.3 fL (9.4-12.3); Monocytes Absolute Auto 1.3 X10*3/uL (0.1-1.2); Monocytes Percent Auto 23.9 % (2-11); Neutrophils Absolute Auto 1.7 x10*3/uL (2.0-8.3); Neutrophils Percent Auto 32.7 % (45-73); Platelet Count 335 X10*3/uL (160-400); Red Blood Count 3.29 X10*6/uL (4.20-5.50); Red Cell Distribution Width 14.6 % (11.0-16.0); SCAN SMEAR FLAG 1; White Blood Count 5.2 X10*3/uL (4.8-10.8)
[2024-05-17 07:07] LABS: Anion Gap 14 (12-20); Blood Urea Nitrogen 15 mg/dL (9-16); Calcium 8.6 mg/dL (8.4-10.2); Carbon Dioxide 22 mmol/L (22-29); Chloride 110 mmol/L (96-108); Estimated Glomerular Filt Rate > 60; Glucose Random 88 mg/dL (60-115); Potassium 3.7 mmol/L (3.3-5.1); Sodium 142 mmol/L (135-145)
[2024-05-17 07:40] LABS: SLIDE REVIEW VERIFIED
== END 2024-05-17 06:09 | disposition home or self-care (01) ==
LOC: HO.MMNH1L 06:08
PROVIDERS: Visit Provider Internal Medicine
DX: I10 Essential (primary) hypertension (principal)
CPT/HCPCS: 36415; 80048; 85025

== ENCOUNTER 2024-05-24 05:44 | Outpatient (REF) | payer MEDICARE, SELFPAY ==
[2024-05-24 06:34] LABS: Anion Gap 13 (12-20); Blood Urea Nitrogen 15 mg/dL (9-16); Calcium 9.1 mg/dL (8.4-10.2); Carbon Dioxide 23 mmol/L (22-29); Chloride 110 mmol/L (96-108); Estimated Glomerular Filt Rate > 60; Glucose Random 79 mg/dL (60-115); Potassium 3.8 mmol/L (3.3-5.1); Sodium 142 mmol/L (135-145)
[2024-05-24 07:04] LABS: Basophils Absolute Auto 0.1 X10*3/uL (0.0-0.2); Eosinophils Absolute Auto 0.1 X10*3/uL (0.0-0.4); Eosinophils Percent Auto 1.5 % (0-4); Hematocrit 32.2 % (37.0-47.0); Hemoglobin 10.7 g/dl (12.0-16.0); Imm Gran Abs Auto 0.01 X10*3/uL (0.00-0.03); Imm Gran Pct Auto 0.2 % (0.0-0.4); Lymphocytes Absolute Auto 1.4 X10*3/uL (1.2-4.9); Lymphocytes Percent Auto 26.8 % (20-40); MANUAL DIFF FLAG SCAN; Mean Corpuscular HGB Conc 33.2 g/dl (31.0-35.0); Mean Corpuscular Hemoglobin 32.5 pg (27.0-33.0); Mean Corpuscular Volume 97.9 fL (80.0-98.0); Mean Platelet Volume 9.7 fL (9.4-12.3); Monocytes Absolute Auto 1.1 X10*3/uL (0.1-1.2); Monocytes Percent Auto 21.7 % (2-11); Neutrophils Absolute Auto 2.6 x10*3/uL (2.0-8.3); Neutrophils Percent Auto 48.8 % (45-73); Platelet Count 277 X10*3/uL (160-400); Red Blood Count 3.29 X10*6/uL (4.20-5.50); Red Cell Distribution Width 14.5 % (11.0-16.0); SCAN SMEAR FLAG 1; White Blood Count 5.3 X10*3/uL (4.8-10.8)
[2024-05-24 07:32] LABS: SLIDE REVIEW VERIFIED
== END 2024-05-24 05:45 | disposition home or self-care (01) ==
LOC: HO.MMNH1L 05:44
PROVIDERS: Visit Provider Internal Medicine
DX: I10 Essential (primary) hypertension (principal)
CPT/HCPCS: 36415; 80048; 85025

== ENCOUNTER 2024-05-31 05:48 | Outpatient (REF) | payer MEDICARE, SELFPAY ==
[2024-05-31 06:17] LABS: Basophils Absolute Auto 0.1 X10*3/uL (0.0-0.2); Eosinophils Absolute Auto 0.6 X10*3/uL (0.0-0.4); Eosinophils Percent Auto 12.3 % (0-4); Hematocrit 36.9 % (37.0-47.0); Hemoglobin 11.9 g/dl (12.0-16.0); Imm Gran Abs Auto 0.01 X10*3/uL (0.00-0.03); Imm Gran Pct Auto 0.2 % (0.0-0.4); Lymphocytes Absolute Auto 1.5 X10*3/uL (1.2-4.9); Lymphocytes Percent Auto 28.7 % (20-40); MANUAL DIFF FLAG SCAN; Mean Corpuscular HGB Conc 32.2 g/dl (31.0-35.0); Mean Corpuscular Hemoglobin 32.2 pg (27.0-33.0); Mean Corpuscular Volume 99.7 fL (80.0-98.0); Mean Platelet Volume 9.6 fL (9.4-12.3); Monocytes Absolute Auto 1.1 X10*3/uL (0.1-1.2); Monocytes Percent Auto 20.9 % (2-11); Neutrophils Absolute Auto 1.9 x10*3/uL (2.0-8.3); Neutrophils Percent Auto 36.9 % (45-73); Platelet Count 290 X10*3/uL (160-400); Red Cell Distribution Width 13.9 % (11.0-16.0); SCAN SMEAR FLAG 1; White Blood Count 5.1 X10*3/uL (4.8-10.8)
[2024-05-31 07:06] LABS: Anion Gap 15 (12-20); Blood Urea Nitrogen 16 mg/dL (9-16); Calcium 9.5 mg/dL (8.4-10.2); Carbon Dioxide 25 mmol/L (22-29); Chloride 105 mmol/L (96-108); Estimated Glomerular Filt Rate > 60; Glucose Random 98 mg/dL (60-115); Sodium 141 mmol/L (135-145)
[2024-05-31 07:25] LABS: SLIDE REVIEW VERIFIED
== END 2024-05-31 05:49 | disposition home or self-care (01) ==
LOC: HO.MMNH1L 05:48
PROVIDERS: Visit Provider Internal Medicine
DX: I10 Essential (primary) hypertension (principal)
CPT/HCPCS: 36415; 80048; 85025

== ENCOUNTER 2024-07-16 05:37 | Outpatient (REF) | payer MEDICARE, SELFPAY ==
[2024-07-16 05:47] LABS: Appearance Urine Clear; Color Urine Yellow; Glucose Urine UA 250 mg/dL (Negative); Leukocyte Esterase Urine Negative (Negative); Nitrite Urine Negative (Negative); Urine Blood Negative (Negative); Urine Ketones Negative (Negative); Urine Protein Trace mg/dL (Neg-Trace)
== END 2024-07-16 05:38 | disposition home or self-care (01) ==
LOC: HO.MMNH3L 05:37
PROVIDERS: Visit Provider Nurse Practitioner
DX: Z13.89 Encounter for screening for other disorder (principal)
CPT/HCPCS: 81003; 87086

== ENCOUNTER 2024-07-16 11:50 | Emergency (ER) | payer MEDICARE, SELFPAY ==
[2024-07-16] VITALS (18 sets, daily range): BP systolic 118–154; BP diastolic 66–78; PULSE 80–117; RESP 12–29; TEMP 36.7–36.9; O2SAT 86–100; BMI 20.5
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
--- NOTE | 2024-07-16 12:16 | ECG_ITS ---
Test Reason : AMS Blood Pressure : */* mmHG Vent. Rate : 94 BPM Atrial Rate : 94 BPM P-R Int : 172 ms QRS Dur : 126 ms QT Int : 394 ms P-R-T Axes : 66 -57 47 degrees QTcB Int : 492 ms Normal sinus rhythm Left axis deviation Right bundle branch block Inferior infarct , age undetermined Abnormal ECG When compared with ECG of 11-Jun-2011 07:23, No significant changes seen Referred By: Laurent Bell Electronically Signed By: BRITTANY ALVAREZ
--- NOTE | 2024-07-16 12:41 | PC.NURSE ---
Zyprexa was held per attending as patient has stopped screaming and is calm
[2024-07-16 13:27] LABS: MANUAL DIFF FLAG NO
[2024-07-16 13:30] LABS: Basophils Absolute Auto 0.1 X10*3/uL (0.0-0.2); Basophils Percent Auto 0.7 % (0-2); Eosinophils Absolute Auto 0.3 X10*3/uL (0.0-0.4); Eosinophils Percent Auto 2.8 % (0-4); Hematocrit 37.5 % (37.0-47.0); Hemoglobin 12.9 g/dl (12.0-16.0); Imm Gran Abs Auto 0.04 X10*3/uL (0.00-0.03); Imm Gran Pct Auto 0.4 % (0.0-0.4); Lymphocytes Absolute Auto 1.1 X10*3/uL (1.2-4.9); Lymphocytes Percent Auto 10.9 % (20-40); Mean Corpuscular HGB Conc 34.4 g/dl (31.0-35.0); Mean Corpuscular Hemoglobin 33.1 pg (27.0-33.0); Mean Corpuscular Volume 96.2 fL (80.0-98.0); Mean Platelet Volume 8.7 fL (9.4-12.3); Monocytes Absolute Auto 0.9 X10*3/uL (0.1-1.2); Monocytes Percent Auto 9.3 % (2-11); Neutrophils Absolute Auto 7.7 x10*3/uL (2.0-8.3); Neutrophils Percent Auto 75.9 % (45-73); Platelet Count 325 X10*3/uL (160-400); Red Cell Distribution Width 13.2 % (11.0-16.0); White Blood Count 10.1 X10*3/uL (4.8-10.8)
[2024-07-16 13:47] LABS: Ethanol < 10 mg/dL
[2024-07-16 13:57] LABS: Alanine Aminotransferase 23 U/L (0-31); Albumin Level 3.5 g/dL (3.5-5.0); Anion Gap 13 (12-20); Aspartate Amino Transferase 20 U/L (5-31); Bilirubin Direct 0.1 mg/dL (0.0-0.5); Bilirubin Total 0.4 mg/dL (0.0-1.0); Blood Urea Nitrogen 14 mg/dL (9-16); C Reactive Protein 1.41 mg/dL (< or = 0.50); Calcium 9.5 mg/dL (8.4-10.2); Carbon Dioxide 25 mmol/L (22-29); Chloride 110 mmol/L (96-108); Estimated Glomerular Filt Rate > 60; Glucose Random 103 mg/dL (60-115); Magnesium 1.7 mg/dL (1.6-2.6); Potassium 3.3 mmol/L (3.3-5.1); Sodium 145 mmol/L (135-145); Total Protein 6.6 g/dL (6.5-8.0)
[2024-07-16 14:09] LABS: Alkaline Phosphatase 69 U/L (39-117)
[2024-07-16] MEDS: OLANZapine ODT 10 MG TAB.RAPDIS 5 MG TRANSLINGU (15:27)
[2024-07-16] MEDS: OLANZapine 10 MG VIAL 5 MG IM (16:00)
--- NOTE | 2024-07-16 17:50 | MHC.CARE ---
CARE team spoke with Antonio at [facility]. He reports pt was transported to [facility] on 06/21 secondary to acute change in behavior, increased paranoia, destroying other pt?s belongings and impulsive shouting. Pt was not seen by crisis due to her dx of dementia. Psychiatry determined pt did not meet IPLOC and she was discharged back to facility. CARE team spoke with staff at [facility] Clarice- Anu and GEORGINA Suazo. They report pt is pleasantly confused at baseline. She is usually very quiet and has ?normal? interactions with staff and other pts. There has been a recent increase in aggressive behaviors. Pt has been observed spitting at and hitting ?everything in her way?. Staff report they have observed an increase in pt?s paranoia. She believes everyone is out to kill her. Pt resumed taking seroquel two days ago after being off it for about a month. Staff report pt has poor appetite. She has experienced a 16 lb weight loss in the past 3 months. They report her sleep is intermittent. Pt has no known family, no regular visitors. They have Rhonda Ceja listed as emergency contact but unclear of her relation to pt.? Contacted Rhonda, emergency contact @ [phone] and [phone]. left VM.
[2024-07-16] MEDS: risperiDONE 1 MG TABLET PO (18:58)
--- NOTE | 2024-07-16 20:30 | MHC.CARE ---
Plan is for Pt to be seen by psychiatry. made aware.
--- NOTE | 2024-07-16 21:05 | MHC.EDTECH ---
Addendum entered by Daisy Miranda 07/16/24 21:08: red, nonopened bed sore was found on coccyx bone, allevyn pad was placed Original Note: pt was found incontinent of urine, lanette care was given, new hospital gown and linen were given, call parker within reach
[2024-07-16] MEDS: LORazepam 2 MG/ML VIAL IM (21:25)
[2024-07-16] MEDS: Haloperidol Lactate 5 MG/ML VIAL 2.5 MG IM (21:26)
--- NOTE | 2024-07-16 23:21 | MHC.EDTECH ---
chnaged patient and full bed, purewick attached.
[2024-07-17 00:10] VITALS: BP 143/68; PULSE 115; RESP 17; O2SAT 99
--- NOTE | 2024-07-17 00:14 | PC.NURSE ---
Straight catheterization. Small amount of urine, thick, very foul-smelling, luiz/brown color. Specimen sent to lab for analysis. UTI.
[2024-07-17 00:27] LABS: Appearance Urine Turbid; Color Urine Brown; Glucose Urine UA Negative (Negative); Leukocyte Esterase Urine Large (3+) (Negative); Nitrite Urine Positive (Negative); PH 6.5 (5.0-9.0); Specific Gravity - Urine 1.025 (1.005-1.025); UMIC TRIGGER UACC YES; Urine Blood Large (3+) (Negative); Urine Ketones Trace mg/dL (Negative); Urine Protein 100 (2+) mg/dL (Neg-Trace)
[2024-07-17 00:34] LABS: Amphetamine Screen Urine Not Detected (Not Detect); Barbiturates, Urine Not Detected (Not Detect); Benzodiazepines Screen Urine Not Detected (Not Detect); Buprenorphine Scr Not Detected (Not Detect); Cannabinoid Screen Urine Not Detected (Not Detect); Cocaine Screen Urine Not Detected (Not Detect); Fentanyl, urine Not Detected (Not Detect); Methadone Screen, Urine Not Detected (Not Detect); Opiate Screen Urine Not Detected (Not Detect); Oxycodone Screen Urine Not Detected (Not Detect); Phencyclidine Screen Urine Not Detected (Not Detect)
[2024-07-17 00:36] LABS: Bacteria Urine 4+ (None Seen); Calcium Oxalate Crystals Urine Present; Hyaline Casts Urine >20 /LPF (0-2); RBC Urine >20 /HPF (0-2); UACC Culture Trigger YES; WBC Urine >50 /HPF (0-5)
[2024-07-17] MEDS: cefTRIAXone sodium 1 GM, Lidocaine HCl 1 % MPF 2.1 ML IM ×2 (01:28→17:25)
[2024-07-17 04:04] VITALS: BP 119/65; PULSE 90; RESP 16; TEMP 36.4; O2SAT 100
--- NOTE | 2024-07-17 04:29 | PC.NURSE ---
this rn assumed care of pt @ 0300. pt sleeing at this time oxy mask noted to be in place spo2 100% this rn turned o2 down to 2 lmp pt remains 100%
[2024-07-17 04:36] VITALS: O2SAT 100
[2024-07-17 06:52] VITALS: TEMP 35.6
[2024-07-17 08:31] VITALS: BP 103/65; PULSE 96; RESP 16; TEMP 36.5; O2SAT 97
--- NOTE | 2024-07-17 08:54 | PC.NURSE ---
Pt will transferred to ED Overflow unit with awaiting psych consult. RN to RN report completed with Teressa
--- NOTE | 2024-07-17 11:00 | PHA.MEDREC ---
Addendum entered by Jazmyne Siu RPh 07/17/24 11:08: [facility] reviewed Original Note: Pharmacy Consult ? Medication Reconciliation Pharmacy has completed the medication reconciliation. List from Dinesh Oneil.
--- NOTE | 2024-07-17 11:20 | PC.NURSE ---
patient awoken from sleep and sat up in bed. patient verbalized need to use bathroom. bedside commode used d/t pt medication administration and possible unsteady gait. Patient aaox1-2. patient 2 max assist stand and pivot to commode. bed cleaned, patient cleaned and repositioned back to bed with max assistance. purwik placed back onto patient for safety and skin integrity.
--- NOTE | 2024-07-17 12:56 | PC.NURSE ---
patient somnelent/sleeping with even unlabored respirations. Patient arousable to verbal stimuli. patient states im just tired . patient had a cup of gingerale and apple juice mixed and drank with straw and RN assistance.
--- NOTE | 2024-07-17 16:59 | PC.NURSE ---
patient sleeping most of afternoon but waking self to use commode. patient now alert and oriented to place and self but still confused on situation remains calm cooperative and pleasant at this time.
--- NOTE | 2024-07-17 17:44 | PC.NURSE ---
patient sitting upright in bed eating dinner well independently. patient eating salad, pasta/meatball and gingerale. Patient speaking of needing her mothers phone number and her purse. 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 Patient alert to self and place but not situation or time. Patient remains cooperative and calm.
[2024-07-17] MEDS: OLANZapine ODT 10 MG TAB.RAPDIS TRANSLINGU (19:24)
--- NOTE | 2024-07-17 19:26 | PC.NURSE ---
Patient sitting in room in bed screaming and moaning to call my mother, I broke my leg. Patient unable to be redirected, notified. Zyprexa given, waiting on Risperidone at this time from pharmacy
[2024-07-17] MEDS: risperiDONE 1 MG TABLET PO (19:31)
[2024-07-17 20:53] VITALS: BP 150/69; PULSE 105; RESP 18; TEMP 37.1; O2SAT 100
--- NOTE | 2024-07-17 21:38 | PC.NURSE ---
patient up to commode with assist of 1
--- NOTE | 2024-07-18 00:04 | PC.NURSE ---
patient exiting bed without waiting for help. Assist of 2 to commode and to get changed. Returned to bed calmly, difficult to redirect.
[2024-07-18] MEDS: OLANZapine ODT 10 MG TAB.RAPDIS TRANSLINGU (03:37)
[2024-07-18 05:59] VITALS: BP 172/83; PULSE 92; RESP 14; TEMP 36.3; O2SAT 100
[2024-07-18] MEDS: QUEtiapine Fumarate 25 MG TABLET 12.5 MG PO (11:35)
--- NOTE | 2024-07-18 12:06 | PC.NURSE ---
Assumed care of this patient at 1100, intermittently restless in bed. Assisted to commode x 1 by PER Gutierrez w/o issue. Medicated w/ seroquel PO patient swallowed pill whole w/ water. Respositioned back in bed, eating lunch at this time.
[2024-07-18 13:59] VITALS: BP 176/80; PULSE 101; RESP 18; TEMP 36.4; O2SAT 96
--- NOTE | 2024-07-18 14:13 | PC.NURSE ---
Psych Provider at bedside speaking with patient.
--- NOTE | 2024-07-18 14:28 | P.CNPS_ITS ---
History of Present Illness Date of Service: 07/18/2024 Chief Complaint: AMS Reason for Consult: paranoia Discussed with referring provider: Yes Sources of Information: patient interviewed, chart reviewed and crisis/core team assessment reviewed HPI Narrative: Mrs. Laird is a 83 year-old woman with hx of dementia who resides at [facility]. She was brought due to increased confusion, combative behaviors. In the ED, most work up unremarkable, except for UA which shows UTI. Pt started on ceftriaxone IM as she refused oral. She was combative last night and required IM olanzapine. Pt seen today in ED. Pt has pen and paper, writing random letters. Her speech process is with derailment. She does not say anything meaningful nor logical. She tells this report writer this is up and this is down. When asked if she knows where she is, she again points at paper, up and down. She is not able to tell month, year nor situation. She points at trash can, asks if I can give it to her. Her attention is very poor and then she points at something else. Diagnostics Vital Signs (24Hr): Vital Signs - 24 hr 07/17/24 20:53 07/18/24 05:59 07/18/24 13:59 Temperature 98.8 F 97.4 F 97.6 F Pulse Rate 105 H 92 101 H Respiratory Rate 18 14 18 Blood Pressure 150/69 H 172/83 H 176/80 H Pulse Oximetry 100 100 96 Oxygen Delivery Method Room Air Room Air Room Air BMI result Body Mass Index 20.5 Labs 07/16/24 13:21 07/16/24 13:21 Labs: Laboratory Results - last 48 hr 07/17/24 07/17/24 00:14 06:49 Lactic Acid 1.0 Urine Color Brown A Urine Appearance Turbid Urine pH 6.5 Ur Specific [place] 1.025 Urine Protein 100 (2+) H Urine Glucose (UA) Negative Urine Ketones Trace Urine Blood Large (3+) H Urine Nitrite Positive H Ur Leukocyte Esterase Large (3+) H Urine RBC >20 H Urine WBC >50 H Ur Squamous Epith Cells 6-10 Calcium Oxalate Crystal Present Urine Bacteria 4+ Hyaline Casts >20 Urine Opiates Screen Not Detected Ur Buprenorphine Scrn Not Detected Ur Oxycodone Screen Not Detected Urine Methadone Screen Not Detected Urine Fentanyl Screen Not Detected Ur Barbiturates Screen Not Detected Ur Phencyclidine Scrn Not Detected Ur Amphetamines Screen Not Detected U Benzodiazepines Scrn Not Detected Urine Cocaine Screen Not Detected U Marijuana (THC) Screen Not Detected Mental Status Exam Mental Status Exam Narrative: Pt laying in bed, in NAD. She is writing random letters. No combative behaviors. Her speech is disorganized with loose association and derailment. No intelligible speech at this moment. Her attention is very poor. Medications Medications Current Medications Ceftriaxone Sodium 1 gm/ (Lidocaine HCl 2.1 ml) 0 gm IM DAILY@1700 [facility] Stop: 07/22/24 17:00 Last Admin: 07/17/24 17:25 Dose: 1 kit Quetiapine Fumarate (Quetiapine Fumarate 25 Mg Tablet) 25 mg PO Q8H PRN PRN Reason: delusions/hallucinations/agitation/paranoia Quetiapine Fumarate (Quetiapine Fumarate 25 Mg Tablet) 12.5 mg PO BID [facility] Last Admin: 07/18/24 11:35 Dose: 12.5 mg Allergies Allergies Allergy/AdvReac Type Severity Reaction Status Date / Time gabapentin [From NEURONTIN] Allergy Unknown RASH Verified 07/16/24 12:03 Assessment & Plan Assessment & Plan (1) Delirium: Status: Acute Code(s): R41.0 - Disorientation, unspecified (2) Major neurocognitive disorder: Status: Acute Code(s): F03.90 - Unspecified dementia, unspecified severity, without behavioral disturbance, psychotic disturbance, mood disturbance, and anxiety Plan Mrs. Laird is a 83 year-old woman with hx of dementia who resides at [facility]. She was brought due to increase combative behaviors, confusion. She was found to have UTI, started on IM ceftriaxone as she was refusing oral medications. Her presentation is consistent with delirium (poor attention, increase confusion, disorganization) superimposed on dementia. Hopefully it improve as UTI is treated. But keep in mind that delirium can take longer to clear up than the UTI. PLAN 1. Recommend to observe overnight and reassess tomorrow to determine need for inpt admission or if getting better and can return to facility. 2. Can scheduled risperidone 0.5mg po TID low doses for psychosis associated to delirium. May be more effective than seroquel. d/c seroquel. Monitor EKG, Qtc<500ms, K>4, Mg>2. 3. maintain appropriate hydration as pt may not be able to verbalize need for it. 4. Delirium precautions: - maintain regular schedule -reduce confusion- calendars, reminder of time/date -encourage mobility -optimize nutrition and hydration - avoid over medication with benzos, antihistamine, anticholinergic medications. Total time managing care of this patient today ___45_ minutes. Patient educated on: diagnosis and medication risk/benefits Guardian/Caregiver educated on: diagnosis
[2024-07-18] MEDS: risperiDONE 0.5 MG TABLET PO ×2 (15:07→20:12)
[2024-07-18] MEDS: cefTRIAXone sodium 1 GM, Lidocaine HCl 1 % MPF 2.1 ML IM (16:54)
[2024-07-18] MEDS: QUEtiapine Fumarate 25 MG TABLET PO (20:12)
[2024-07-18 21:27] VITALS: BP 173/88; PULSE 106; RESP 17; TEMP 36.2; O2SAT 100
--- NOTE | 2024-07-19 | PC.NURSE ---
Pt enters my care- pt resting and yelling out- pt recently medicated seroquel.
--- NOTE | 2024-07-19 05:03 | PC.NURSE ---
Pt resting quietly- no more calling out
[2024-07-19 07:03] VITALS: BP 140/70; PULSE 100; RESP 18; TEMP 36.4; O2SAT 98
[2024-07-19] MEDS: risperiDONE 0.5 MG TABLET PO (09:55)
--- NOTE | 2024-07-19 11:45 | MHC.CARE ---
Pt does not meet the criteria for a higher level of care. She appears to be at baseline and will D/C back to [facility]. Provider in agreement. T/W called the facility 6 times and was unable to speak with any nurse or staff member.
--- NOTE | 2024-07-19 11:53 | MHC.CM.ED ---
Addendum entered by Natali Gutiérrez 07/19/24 14:19: Patient can return to [facility]. Joel GORDILLO booked for 530pm. Patient, Milli ERICKSON and Rupinder LONDONO aware. Attempted to reach HCP, Rhonda via telephone at [phone]. No answer. Unable to leave a message. Left message at [phone] providing d/c info. Original Note: Patient remains in ER overflow. Came to ER 07/16 due to AMS. Found to have an UTI. Cleared by Care Team. Will [facility] Continue to monitor for d/c needs.
[2024-07-19 14:40] VITALS: BP 146/70; PULSE 100; RESP 16; TEMP 36.8; O2SAT 100
--- NOTE | 2024-07-19 14:55 | MHC.EDTECH ---
Patient linens changed. Bedding clean and dry. Call parker placed within reach. Safety measures in place.
[2024-07-19] MEDS: cefTRIAXone sodium 1 GM, Lidocaine HCl 1 % MPF 2.1 ML IM (18:17)
--- NOTE | 2024-07-19 18:19 | MHC.EDTECH ---
Patient incontinent of urine and feces. Assisted patient to commode to finish up. Cleaned patient with assistance of GEORGINA us. Patient settled back in bed, call parker and safety measures in place.
[2024-07-19 18:41] VITALS: BP 146/70; PULSE 100; RESP 16; TEMP 36.8; O2SAT 100
--- NOTE | 2024-07-19 18:45 | PC.NURSE ---
Patient slept most of the shift, compliant with medication, needed assistance with meals. Pleasant, 1 assist to the bedside commode for bowel movement, incontinent of urine, external catheter utilized with good result. Patient dscharged back to [facility] via ambulance.
== END 2024-07-19 18:42 | disposition skilled nursing facility (03) ==
PROVIDERS: Internal Medicine; Emergency Provider Emergency Medicine; PCP Internal Medicine
DX: F03.911 Unspecified dementia, unspecified severity, with agitation (principal); R41.82 Altered mental status, unspecified; N39.0 Urinary tract infection, site not specified; R94.31 Abnormal electrocardiogram [ECG] [EKG]; I45.10 Unspecified right bundle-branch block; Z51.81 Encounter for therapeutic drug level monitoring; Z79.899 Other long term (current) drug therapy
CPT/HCPCS: 36415; 80048; 80076; 80307; 81001; 81003; 83605; 83735; 85025; 86140; 87040; 87086; 93005; 99285; J0696; J1630; J2003; J2060; J2359; S9485

== ENCOUNTER → 2024-07-16 12:16 | Outpatient (BNV) | payer MEDICARE, SELFPAY | PROVIDERS: Emergency Provider Emergency Medicine; PCP Internal Medicine; Visit Provider Internal Medicine | DX: I45.10 Unspecified right bundle-branch block (principal); R94.31 Abnormal electrocardiogram [ECG] [EKG]; R41.82 Altered mental status, unspecified | CPT/HCPCS: 93010 ==

== ENCOUNTER → 2024-07-16 12:47 | Outpatient (BNV) | payer MEDICARE, SELFPAY | PROVIDERS: Emergency Provider Emergency Medicine; PCP Internal Medicine; Visit Provider Social Worker | DX: F03.90 Unspecified dementia, unspecified severity, without behavioral disturbance, psychotic disturbance, mood disturbance, and anxiety (principal); R41.0 Disorientation, unspecified | CPT/HCPCS: 99284 ==

== ENCOUNTER 2024-07-19 22:56 | Emergency (ER) | payer MEDICARE, SELFPAY ==
--- NOTE | ~2024-07-19 | CT_ITS ---
CLINICAL HISTORY: trauma CT head without contrast Comparison: CT/SR - CT HEAD/BRAIN WO IV CON - 03/26/23 19:04 EDT Findings: No intra-axial mass, midline shift, hydrocephalus, or acute hemorrhage. Moderate atrophy like change. Partial opacification left mastoids. Right mastoids clear. Paranasal sinuses clear. The orbits are within normal limits. There is no acute fracture. No fracture of the left mastoid. IMPRESSION: 1. No acute intracranial findings 2. Left mastoid partial opacification is new since the prior exam. Etiology indeterminate. This document has been electronically signed by: Fawad Noe MD on 07/20/2024 00:54:12
--- NOTE | ~2024-07-19 | XR_ITS ---
CLINICAL HISTORY: trauma 1 view chest x-ray. Comparison: None Findings: No pneumothorax, consolidation, or effusion. Heart size at the upper limits. No mediastinal widening. Osteopenia. No acute fracture. No foreign body. Impression: 1. No acute injury. 2. Eggshell calcified 2.4 cm density projects just under the left hemidiaphragm. Etiology indeterminate. This document has been electronically signed by: Fawad Noe MD on 07/20/2024 02:13:04
--- NOTE | ~2024-07-19 | CT_ITS ---
CLINICAL HISTORY: pain CT abdomen and pelvis with contrast Comparison: CR - XR CHEST 1V - 07/20/24 01:13 EST Findings: No consolidation or effusion. Peripherally calcified probable cyst within the medial spleen 2.2 cm. Underlying etiology indeterminate. Subcentimeter right renal cysts. Segment 2 and segment 4 tiny liver cysts. Cholecystectomy. Abdominal solid organs otherwise unremarkable. No bowel obstruction, pneumoperitoneum, or pneumatosis. Moderate stool. Right ovarian cyst 4.8 cm. Multiple calcified uterine fibroids. Left ovary unremarkable. Normal appendix. Colonic diverticulosis without diverticulitis. No acute fractures. Circumferential disc bulging L3-S1. Associated severe spinal canal stenosis at L4-5 and mild multilevel foraminal stenosis. IMPRESSION: 1. Right ovarian cyst. Recommend nonemergent ultrasound characterization. 2. Lumbar degenerative changes with severe spinal canal stenosis L4-5 due to disc bulging. 3. Moderate stool without bowel obstruction. 4. Additional nonacute findings as above. This document has been electronically signed by: Fawad Noe MD on 07/20/2024 04:19:58
--- NOTE | ~2024-07-19 | CT_ITS ---
CLINICAL HISTORY: trauma CT cervical spine without contrast Comparison: CT/[place]/SR - CT CERVICAL SPINE WO IV CON - 03/26/23 19:04 EDT Findings: Grade 2 degenerative spondylolisthesis C5-C6. Ankylosis throughout the majority of the cervical facet joints. Ankylosis several levels in the cervical spine, most evident C6-C7. Osteopenia. No acute fracture. No acute findings on limited view of the intracranial contents. Soft tissues of the neck are normal. Lung apices are clear. IMPRESSION: Degenerative spondylosis. No acute fracture. This document has been electronically signed by: Fawad Noe MD on 07/20/2024 00:53:50
--- NOTE | 2024-07-19 23:10 | ECG_ITS ---
Test Reason : FALL Blood Pressure : */* mmHG Vent. 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
[2024-07-19 23:15] VITALS: BP 142/80; PULSE 109; PULSE 51; RESP 14; TEMP 36.4; O2SAT 99; BMI 20.9
[2024-07-19 23:18] LABS: MANUAL DIFF FLAG NO
[2024-07-19 23:19] LABS: Basophils Percent Auto 0.3 % (0-2); Hematocrit 39.8 % (37.0-47.0); Hemoglobin 13.9 g/dl (12.0-16.0); Imm Gran Abs Auto 0.04 X10*3/uL (0.00-0.03); Imm Gran Pct Auto 0.3 % (0.0-0.4); Lymphocytes Absolute Auto 0.5 X10*3/uL (1.2-4.9); Lymphocytes Percent Auto 3.3 % (20-40); Mean Corpuscular HGB Conc 34.9 g/dl (31.0-35.0); Mean Corpuscular Hemoglobin 32.9 pg (27.0-33.0); Mean Corpuscular Volume 94.3 fL (80.0-98.0); Mean Platelet Volume 8.6 fL (9.4-12.3); Monocytes Absolute Auto 1.1 X10*3/uL (0.1-1.2); Monocytes Percent Auto 7.5 % (2-11); Neutrophils Absolute Auto 12.6 x10*3/uL (2.0-8.3); Neutrophils Percent Auto 88.6 % (45-73); Platelet Count 346 X10*3/uL (160-400); Red Blood Count 4.22 X10*6/uL (4.20-5.50); Red Cell Distribution Width 13.3 % (11.0-16.0); White Blood Count 14.2 X10*3/uL (4.8-10.8)
[2024-07-19 23:40] LABS: Anion Gap 18 (12-20); Blood Urea Nitrogen 14 mg/dL (9-16); Calcium 10.1 mg/dL (8.4-10.2); Carbon Dioxide 20 mmol/L (22-29); Chloride 110 mmol/L (96-108); Creatinine Clr Calc Pharmacy 32.9; Estimated Glomerular Filt Rate 49; Potassium 3.7 mmol/L (3.3-5.1); Sodium 144 mmol/L (135-145)
[2024-07-19 23:53] LABS: Glucose Random 228 mg/dL (60-115)
[2024-07-20] VITALS (11 sets, daily range): BP systolic 122–164; BP diastolic 55–80; PULSE 73–105; RESP 12–20; TEMP 36.1–36.9; O2SAT 95–100
--- NOTE | 2024-07-20 01:03 | ED_ITS ---
HPI - Fall General Chief Complaint: Fall Stated Complaint: FALL HEADSTRIKE Time Seen by Provider: 07/19/24 23:14 Source: patient Limitations: no limitations History of Present Illness ED Provider: Breanna Connor PA-C HPI Narrative: 83-year-old female with a history of dementia presents from intermediate facility, after being just discharged from [facility] 3 days ago, after sustaining an unwitnessed fall. History limited secondary to patient's dementia. Related Data Home Medications ?Medication ?Instructions ?Recorded ?Confirmed quetiapine 25 mg tablet 25 mg PO Q8H PRN 07/17/24 07/17/24 delusions/hallucinations/agitation/paranoia quetiapine 25 mg tablet (Seroquel) 12.5 mg PO BID 07/17/24 07/17/24 Previous Rx's ?Medication ?Instructions ?Recorded cefuroxime axetil 250 mg tablet 250 mg PO BID 5 days #10 tabs 07/19/24 cefuroxime axetil 250 mg tablet 250 mg PO BID #14 tabs 07/20/24 Allergies Allergy/AdvReac Type Severity Reaction Status Date / Time gabapentin [From NEURONTIN] Allergy Unknown RASH Verified 07/19/24 23:19 Review of Systems 2 Review of Systems: Unable to obtain secondary to patient's dementia Yes all other systems are reviewed and are negative PMFSH Past Medical History Attestation statement: The following information was validated with the patient. Social History Social History Smoked in Last 30 Days: No Use of substances other than those prescribed or required for medical reasons: No Advance Directives: No Advance Directives Information Provided: Yes Physical Exam 2 Vital Signs: Vital Signs: Last Vital Signs Temp 97.9 F 07/20/24 06:00 Pulse 97 07/20/24 06:00 Resp 13 07/20/24 06:00 BP 127/55 L 07/20/24 06:00 Pulse Ox 96 07/20/24 06:00 O2 Del Method Room Air 07/20/24 06:00 Oxygen Flow Rate 2 07/19/24 23:15 BMI result Body Mass Index 20.9 Const: Other: Ill appearance, vomit over the patient's chin, superficial laceration no longer bleeding over central frontal scalp measures 2 cm, overlying ecchymosis Orientation/consciousness: oriented to person Resp: Effort & Inspection: normal respiratory effort Cardio: Other: Normal peripheral perfusion GI: Other: Abdomen is soft, nondistended, nontender no guarding Skin: Other: Warm dry no rash Neuro: General: oriented to person Extrem: Other: We will move extremities independently, however globally weak Psych: Other: Cooperative Course Reevaluation(s) Reevaluation #1: Concerned for sepsis, patient arrives tachycardic, but afebrile, her lactic is 2.4, we will be adding ceftriaxone, blood cultures already obtained Time: :27 Medications Administered Discontinued Medications Generic Name Dose Route Start Last Admin Trade Name Freq PRN Reason Stop Dose Admin Ceftriaxone Sodium 2 gm 07/20/24 01:13 07/20/24 01:57 Ceftriaxone Sodium 2 Gm Vial IVPUSH 07/20/24 01:14 2 gm ONCE ONE Administration Sodium Chloride 1,000 mls @ 999 mls/hr 07/20/24 01:15 07/20/24 03:52 Ns IV 07/20/24 02:15 Infused .Q1H1M KAREN Infusion Iohexol 85 ml 07/20/24 03:31 07/20/24 03:33 Iohexol 350 Mg/Ml 100 Ml Infus..Btl IV 07/20/24 03:32 85 ml ONCE ONE Administration Ondansetron HCl 4 mg 07/20/24 01:13 07/20/24 01:45 Ondansetron Hcl 4 Mg/2 Ml Vial IVPUSH 07/20/24 01:14 4 mg ONCE ONE Administration Procedures Laceration Laceration 1: Site: scalp and other (Central/ frontal) Size (cm): 2 Description: linear Depth: simple, single layer Pre-repair: irrigated extensively Skin layer closed with: other (Staple) Number of sutures: 4 Medical Decision Making Medical Decision Making MDM Narrative: 83-year-old female with a history of dementia presents, from intermediate facility after being just discharged from [facility] 3 days ago, after sustaining an unwitnessed fall. History limited secondary to patient's dementia. Problem: Dementia History: Which is limited I have considered the following differential diagnoses: Acute intra-abdominal pathology, intracranial hemorrhage, cervical spine injury, untreated UTI, sepsis Plan: Patient is normotensive, however she is tachycardic, I am considering sepsis. Also not febrile, we obtained a rectal temp. At the time of discharge, she was being treated for urinary tract infection. She has a vomit over her chin, I wonder if she has been tolerating her medications. We will be screening basic labs, urinalysis, blood culture, lactic acid and a CT scan of the abdomen. Giving IV fluid and Zofran. Also scanning her head and neck as there is obvious signs of trauma on exam. I do not think she needs any additional imaging, she is able to move her extremities independently, I can also passively range them without pain, there was also no noted deformity. I have independently reviewed the following tests: Labs: Leukocytosis with left shift, not anemic, no electrolyte abnormality, lactic acid 2.4, urine is infected, however it is improved from her prior urinalysis on 07/17. EKG: Undetermined rhythm, rate of 110, right bundle branch block no ischemic changes no ectopy, QTC 492 CT brain: MPRESSION: 1. No acute intracranial findings 2. Left mastoid partial opacification is new since the prior exam. Etiology indeterminate. This document has been electronically signed by: Fawad Noe MD on 07/20/2024 00:54:12 CT cervical spine:MPRESSION: Degenerative spondylosis. No acute fracture. This document has been electronically signed by: Fawad Noe MD on 07/20/2024 00:53:50 I received sign-out from my colleague BRY Connor Patient's abdominal CT scan shows a right ovarian cyst, no acute findings. Patient has not had any episodes of nausea vomiting or diarrhea, has not complaining of abdominal pain. Lab Data MDM Lab Attestation statement: I reviewed the patient's lab results. 07/19/24 23:12 07/19/24 23:12 Labs: Lab Results 07/19/24 07/20/24 07/20/24 Range/Units 23:12 01:31 01:52 WBC 14.2 H (4.8-10.8) X10*3/uL RBC 4.22 (4.20-5.50) X10*6/uL Hgb 13.9 (12.0-16.0) g/dl Hct 39.8 (37.0-47.0) % MCV 94.3 (80.0-98.0) fL MCH 32.9 (27.0-33.0) pg MCHC 34.9 (31.0-35.0) g/dl RDW 13.3 (11.0-16.0) % Plt Count 346 (160-400) X10*3/uL MPV 8.6 L (9.4-12.3) fL Immature Gran % (Auto) 0.3 (0.0-0.4) % Neut % (Auto) 88.6 H (45-73) % Lymph % (Auto) 3.3 L (20-40) % [place] % (Auto) 7.5 (2-11) % Eos % (Auto) 0.0 (0-4) % Baso % (Auto) 0.3 (0-2) % Lymph # (Auto) 0.5 L (1.2-4.9) X10*3/uL [place] # (Auto) 1.1 (0.1-1.2) X10*3/uL Eos # (Auto) 0.0 (0.0-0.4) X10*3/uL Baso # (Auto) 0.0 (0.0-0.2) X10*3/uL Abs Immat Gran (auto) 0.04 H (0.00-0.03) X10*3/uL Absolute Neuts (auto) 12.6 H (2.0-8.3) x10*3/uL Absolute Nucleated RBC 0.000 (0.0-0.012) X10*3/uL Nucleated RBC % (auto) 0.0 (0.0-0.2) /100WBC Hold Blue Top SEE NOTE Sodium 144 (135-145) mmol/L Potassium 3.7 (3.3-5.1) mmol/L Chloride 110 H (96-108) mmol/L Carbon Dioxide 20 L (22-29) mmol/L Anion Gap 18 (12-20) BUN 14 (9-16) mg/dL Creatinine 1.07 (0.5-1.4) mg/dL Estim Creat Clear Calc 32.9 Estimated GFR 49 Random Glucose 228 H (60-115) mg/dL Lactic Acid 2.4 H* (0.5-2.0) mmol/L Lactic Acid F/U @ 2Hr (0.5-2.0) mmol/L Calcium 10.1 D (8.4-10.2) mg/dL Urine Color Dark Yellow Urine Appearance Cloudy Urine pH 5.5 (5.0-9.0) Ur Specific [place] 1.025 (1.005-1.025) Urine Protein 100 (2+) H (Neg-Trace) mg/dL Urine Glucose (UA) 100 H (Negative) mg/dL Urine Ketones Trace (Negative) mg/dL Urine Blood Trace H (Negative) Urine Nitrite Negative (Negative) Ur Leukocyte Esterase Trace H (Negative) Urine RBC 3-5 H (0-2) /HPF Urine WBC 6-10 (0-5) /HPF Ur Squamous Epith Cells 6-10 (0-2) /HPF Urine Bacteria Trace (None Seen) Hyaline Casts 11-20 (0-2) /LPF Granular Casts Present 07/20/24 Range/Units 04:53 WBC (4.8-10.8) X10*3/uL RBC (4.20-5.50) X10*6/uL Hgb (12.0-16.0) g/dl Hct (37.0-47.0) % MCV (80.0-98.0) fL MCH (27.0-33.0) pg MCHC (31.0-35.0) g/dl RDW (11.0-16.0) % Plt Count (160-400) X10*3/uL MPV (9.4-12.3) fL Immature Gran % (Auto) (0.0-0.4) % Neut % (Auto) (45-73) % Lymph % (Auto) (20-40) % [place] % (Auto) (2-11) % Eos % (Auto) (0-4) % Baso % (Auto) (0-2) % Lymph # (Auto) (1.2-4.9) X10*3/uL [place] # (Auto) (0.1-1.2) X10*3/uL Eos # (Auto) (0.0-0.4) X10*3/uL Baso # (Auto) (0.0-0.2) X10*3/uL Abs Immat Gran (auto) (0.00-0.03) X10*3/uL Absolute Neuts (auto) (2.0-8.3) x10*3/uL Absolute Nucleated RBC (0.0-0.012) X10*3/uL Nucleated RBC % (auto) (0.0-0.2) /100WBC Hold Blue Top Sodium (135-145) mmol/L Potassium (3.3-5.1) mmol/L Chloride (96-108) mmol/L Carbon Dioxide (22-29) mmol/L Anion Gap (12-20) BUN (9-16) mg/dL Creatinine (0.5-1.4) mg/dL Estim Creat Clear Calc Estimated GFR Random Glucose (60-115) mg/dL Lactic Acid (0.5-2.0) mmol/L Lactic Acid F/U @ 2Hr 1.7 (0.5-2.0) mmol/L Calcium (8.4-10.2) mg/dL Urine Color Urine Appearance Urine pH (5.0-9.0) Ur Specific [place] (1.005-1.025) Urine Protein (Neg-Trace) mg/dL Urine Glucose (UA) (Negative) mg/dL Urine Ketones (Negative) mg/dL Urine Blood (Negative) Urine Nitrite (Negative) Ur Leukocyte Esterase (Negative) Urine RBC (0-2) /HPF Urine WBC (0-5) /HPF Ur Squamous Epith Cells (0-2) /HPF Urine Bacteria (None Seen) Hyaline Casts (0-2) /LPF Granular Casts Independent Interpretation I performed an independent interpretation of an: CT Scan Radiology Impression Discussion of test interpretation with radiology: I have reviewed the radiologist's reading. Radiologist Impression: Findings: No consolidation or effusion. Peripherally calcified probable cyst within the medial spleen 2.2 cm. Underlying etiology indeterminate. Subcentimeter right renal cysts. Segment 2 and segment 4 tiny liver cysts. Cholecystectomy. Abdominal solid organs otherwise unremarkable. No bowel obstruction, pneumoperitoneum, or pneumatosis. Moderate stool. Right ovarian cyst 4.8 cm. Multiple calcified uterine fibroids. Left ovary unremarkable. Normal appendix. Colonic diverticulosis without diverticulitis. No acute fractures. Circumferential disc bulging L3-S1. Associated severe spinal canal stenosis at L4-5 and mild multilevel foraminal stenosis. IMPRESSION: 1. Right ovarian cyst. Recommend nonemergent ultrasound characterization. 2. Lumbar degenerative changes with severe spinal canal stenosis L4-5 due to disc bulging. 3. Moderate stool without bowel obstruction. 4. Additional nonacute findings as above. Discharge Plan Discharge Clinical Impression: Fall at [facility], Vomiting, Laceration of scalp, Acute UTI Patient Disposition: Xfer Other Transfer Details: [facility] facility Instructions: Laceration (ED), Fall Prevention (ED), Urinary Tract Infection in Older Adults (ED) Additional Instructions: Your stitches/faby need to be removed in 7-10 days. Please follow-up with your primary care physician tomorrow. If you have any worsening or new symptoms, please return to the emergency room or call 911 Prescriptions: New cefuroxime axetil 250 mg tablet 250 mg PO BID Qty: 14 0RF No Action quetiapine [Seroquel] 25 mg Tablet 12.5 mg PO BID quetiapine 25 mg Tablet 25 mg PO Q8H PRN (Reason: delusions/hallucinations/agitation/paranoia) Rx Instructions: END DATE: 07/29/24 cefuroxime axetil 250 mg tablet 250 mg PO BID 5 Days Qty: 10 0RF Print Language: Swedish
[2024-07-20] MEDS: ondansetron HCL 4 MG/2 ML VIAL IVPUSH (01:45)
[2024-07-20] MEDS: 0.9 % Sodium Chloride 1,000 ML 999 ML IV (01:47)
[2024-07-20 01:57] LABS: Lactic Acid 2.4 mmol/L (0.5-2.0)
[2024-07-20] MEDS: cefTRIAXone sodium 2 GM VIAL IVPUSH (01:57)
[2024-07-20 02:00] LABS: Appearance Urine Cloudy; Color Urine Dark Yellow; Glucose Urine UA 100 mg/dL (Negative); Leukocyte Esterase Urine Trace (Negative); Nitrite Urine Negative (Negative); PH 5.5 (5.0-9.0); Specific Gravity - Urine 1.025 (1.005-1.025); UMIC TRIGGER UACC YES; Urine Blood Trace (Negative); Urine Ketones Trace mg/dL (Negative); Urine Protein 100 (2+) mg/dL (Neg-Trace)
[2024-07-20 02:22] LABS: Bacteria Urine Trace (None Seen); Granular Casts Urine Present; UACC Culture Trigger YES
[2024-07-20] MEDS: iohexoL 350 MG/ML 100 ML INFUS..BTL 85 ML IV (03:33)
[2024-07-20 03:35] LABS: Reflex Lactate? Lactic Acid Added
[2024-07-20 05:39] LABS: ~Lactic Acid-LAB USE ONLY 1.7 mmol/L (0.5-2.0)
--- NOTE | 2024-07-20 06:14 | PC.NURSE ---
Patient alert to self and place only, forgetful, confused at times. VSS. 20 G IV line in right forearm is patent. IV fluids and Rocephin infused. Laceration to scalp with skin edges well approximated, no drainage, 4 faby intact, COFFEE GROWER. Patient incontinent of urine at baseline. Repositioned of buttocks for comfort/skin breakdown prevention. Patient currently on stretcher bed, not in distress, call parker in patient's reach, plan of care ongoing.
[2024-07-20 10:32] LABS: MANUAL DIFF FLAG NO
[2024-07-20 10:33] LABS: Basophils Percent Auto 0.4 % (0-2); Hematocrit 35.5 % (37.0-47.0); Imm Gran Abs Auto 0.03 X10*3/uL (0.00-0.03); Imm Gran Pct Auto 0.4 % (0.0-0.4); Lymphocytes Percent Auto 11.7 % (20-40); Mean Corpuscular HGB Conc 33.8 g/dl (31.0-35.0); Mean Corpuscular Hemoglobin 32.8 pg (27.0-33.0); Mean Platelet Volume 8.8 fL (9.4-12.3); Monocytes Absolute Auto 1.2 X10*3/uL (0.1-1.2); Monocytes Percent Auto 14.5 % (2-11); Platelet Count 279 X10*3/uL (160-400); Red Blood Count 3.66 X10*6/uL (4.20-5.50); Red Cell Distribution Width 13.5 % (11.0-16.0); White Blood Count 8.2 X10*3/uL (4.8-10.8)
[2024-07-20 10:48] LABS: Anion Gap 9 (12-20); Blood Urea Nitrogen 12 mg/dL (9-16); Carbon Dioxide 25 mmol/L (22-29); Chloride 113 mmol/L (96-108); Creatinine Clr Calc Pharmacy 45.7; Estimated Glomerular Filt Rate > 60; Glucose Random 120 mg/dL (60-115); Potassium 3.2 mmol/L (3.3-5.1); Sodium 144 mmol/L (135-145)
[2024-07-20 10:55] LABS: Troponin-I High Sensitivity 10.1 ng/L (<3.5-17.0)
[2024-07-20 11:00] LABS: ABG Base Excess 1.7 mmol/L; ABG HCO3 26 mmol/L (22-26); ABG pCO2 44 mmHg (32-45); ABG pH 7.39 (7.35-7.45); ABG pO2 180 mmHg (83-108)
[2024-07-20] MEDS: Potassium Chloride Packet 20 MEQ PACKET 40 MEQ PO (12:47)
[2024-07-20 13:06] LABS: ABG Refer to POC result
== END 2024-07-20 16:14 ==
PROVIDERS: Emergency Medicine; Physician Assistant Medical; Emergency Provider Emergency Medicine; PCP Internal Medicine
DX: R11.2 Nausea with vomiting, unspecified (principal); N39.0 Urinary tract infection, site not specified; S01.01XA Laceration without foreign body of scalp, initial encounter; W19.XXXA Unspecified fall, initial encounter; R00.0 Tachycardia, unspecified; R41.0 Disorientation, unspecified; F03.90 Unspecified dementia, unspecified severity, without behavioral disturbance, psychotic disturbance, mood disturbance, and anxiety; Y93.9 Activity, unspecified; Y92.129 Unspecified place in nursing home as the place of occurrence of the external cause; Y99.9 Unspecified external cause status
CPT/HCPCS: 12001; 36415; 70450; 71045; 72125; 74177; 80048; 81001; 81003; 82803; 83605; 84484; 85025; 87040; 87086; 93005; 96361; 96374; 96375; 99284; 99285; J0696; J2405; Q9967

== ENCOUNTER → 2024-07-19 23:10 | Outpatient (BNV) | payer MEDICARE, SELFPAY | PROVIDERS: Emergency Provider Emergency Medicine; PCP Internal Medicine; Visit Provider Internal Medicine Cardiovascular Disease | DX: R94.31 Abnormal electrocardiogram [ECG] [EKG] (principal) | CPT/HCPCS: 93010 ==

== ENCOUNTER → 2024-07-20 | Outpatient (BNV) | payer MEDICARE, SELFPAY | PROVIDERS: Emergency Provider Emergency Medicine; Visit Provider Radiology Diagnostic Radiology | DX: R10.9 Unspecified abdominal pain (principal); S29.9XXA Unspecified injury of thorax, initial encounter; S19.9XXA Unspecified injury of neck, initial encounter; S09.90XA Unspecified injury of head, initial encounter | CPT/HCPCS: 70450; 71045; 72125; 74177 ==

== ENCOUNTER 2024-08-02 06:04 | Outpatient (REF) | payer MEDICARE, SELFPAY ==
[2024-08-02 07:17] LABS: Hematocrit 35.1 % (37.0-47.0); Hemoglobin 12.1 g/dl (12.0-16.0); Mean Corpuscular HGB Conc 34.5 g/dl (31.0-35.0); Mean Corpuscular Hemoglobin 32.4 pg (27.0-33.0); Mean Corpuscular Volume 94.1 fL (80.0-98.0); Mean Platelet Volume 9.8 fL (9.4-12.3); Platelet Count 477 X10*3/uL (160-400); Red Blood Count 3.73 X10*6/uL (4.20-5.50); WBC ABN SCTR FOR CBC 1
[2024-08-02 07:19] LABS: Alanine Aminotransferase 11 U/L (0-31); Albumin Level 3.1 g/dL (3.5-5.0); Alkaline Phosphatase 72 U/L (39-117); Anion Gap 15 (12-20); Aspartate Amino Transferase 20 U/L (5-31); Bilirubin Total 0.5 mg/dL (0.0-1.0); Blood Urea Nitrogen 15 mg/dL (9-16); Calcium 8.4 mg/dL (8.4-10.2); Carbon Dioxide 19 mmol/L (22-29); Chloride 108 mmol/L (96-108); Estimated Glomerular Filt Rate 55; Glucose Random 145 mg/dL (60-115); Sodium 139 mmol/L (135-145); Total Protein 6.1 g/dL (6.5-8.0)
[2024-08-02 08:00] LABS: Potassium 2.6 mmol/L (3.3-5.1)
[2024-08-02 08:20] LABS: Band Neutrophils Percent 2 % (3-5); Basophils Abs Manual 0.1 X10*3/uL (0.0-0.2); Basophils Percent Manual 1 % (0-2); Eosinophils Absolute Manual 0.3 X10*3/uL (0.0-0.4); Eosinophils Percent Manual 3 % (0-4); Lymphocytes Absolute Manual 1.5 X10*3/uL (1.2-4.9); Lymphocytes Percent Manual 15 % (20-40); Metamyelocytes Absolute 0.1 X10*3/uL; Metamyelocytes Percent 1 %; Monocytes Absolute Manual 1.1 X10*3/uL (0.1-1.2); Monocytes Percent Manual 11 % (2-11); Neutrophils Absolute Manual 6.9 X10*3/uL (2.0-8.3); Neutrophils Percent Manual 67 % (45-73)
[2024-08-02 08:21] LABS: Platelet Estimate SLIGHTLY INCREASED (NORMAL); Platelet Morphology Comment NORMAL; RBC Morphology NORMAL
== END 2024-08-02 06:05 | disposition home or self-care (01) ==
LOC: HO.MMNH3L 06:04
PROVIDERS: Visit Provider Internal Medicine
DX: F03.90 Unspecified dementia, unspecified severity, without behavioral disturbance, psychotic disturbance, mood disturbance, and anxiety (principal); F41.9 Anxiety disorder, unspecified
CPT/HCPCS: 36415; 80053; 85007; 85025; 85027

== ENCOUNTER 2024-08-09 06:03 | Outpatient (REF) | payer MEDICARE, SELFPAY ==
[2024-08-09 06:59] LABS: Potassium 3.2 mmol/L (3.3-5.1)
== END 2024-08-09 06:04 | disposition home or self-care (01) ==
LOC: HO.MMNH3L 06:03
PROVIDERS: Visit Provider Internal Medicine
DX: F03.90 Unspecified dementia, unspecified severity, without behavioral disturbance, psychotic disturbance, mood disturbance, and anxiety (principal); F41.1 Generalized anxiety disorder; J45.909 Unspecified asthma, uncomplicated
CPT/HCPCS: 36415; 84132

== ENCOUNTER 2024-08-23 06:11 | Outpatient (REF) | payer MEDICARE, SELFPAY ==
[2024-08-23 07:16] LABS: Anion Gap 12 (12-20); Carbon Dioxide 21 mmol/L (22-29); Chloride 111 mmol/L (96-108); Potassium 3.1 mmol/L (3.3-5.1); Sodium 141 mmol/L (135-145)
== END 2024-08-23 06:12 | disposition home or self-care (01) ==
LOC: HO.MMNH3L 06:11
PROVIDERS: Visit Provider Internal Medicine
DX: I25.10 Atherosclerotic heart disease of native coronary artery without angina pectoris (principal); F41.1 Generalized anxiety disorder; G43.409 Hemiplegic migraine, not intractable, without status migrainosus
CPT/HCPCS: 36415; 80051

== ENCOUNTER 2024-10-22 05:40 | Outpatient (REF) | payer MEDICARE, SELFPAY ==
[2024-10-22 10:48] LABS: Adenovirus PCR Not Detected (Not Detect.); Bordetella parapertussis PCR Not Detected (Not Detect.); Bordetella pertussis PCR Not Detected (Not Detect.); Chlamydia pneumoniae PCR Not Detected (Not Detect.); Coronavirus 229E PCR Not Detected (Not Detect.); Coronavirus HKU1 PCR Not Detected (Not Detect.); Coronavirus NL63 PCR Not Detected (Not Detect.); Coronavirus OC43 PCR Not Detected (Not Detect.); Human metapneumovirus PCR Not Detected (Not Detect.); Influenza A PCR Not Detected (Not Detect.); Influenza B PCR Not Detected (Not Detect.); Mycoplasma pneumoniae PCR Not Detected (Not Detect.); Parainfluenza 1 PCR Not Detected (Not Detect.); Parainfluenza 2 PCR Not Detected (Not Detect.); Parainfluenza 3 PCR Not Detected (Not Detect.); Parainfluenza 4 PCR Not Detected (Not Detect.); RSV PCR Detected (Not Detect.); Rhino/Enterovirus PCR Not Detected (Not Detect.)
[2024-10-22 12:29] LABS: Influenza A H1 PCR Not Detected (Not Detect.); Influenza A H1-2009 PCR Not Detected (Not Detect.); Influenza A H3 PCR Not Detected (Not Detect.); SARS-CoV-2 PCR Not Detected (Not Detect.)
[2024-10-22 18:33] LABS: Influenza A PCR NEGATIVE (Negative); Influenza B PCR NEGATIVE (Negative); Resp Syncy Virus RNA Qual PCR POSITIVE (Negative); SARS COV2 PCR INHOUSE NEGATIVE (Negative)
[2024-10-23 10:21] LABS: Adenovirus PCR Not Detected (Not Detect.); Bordetella parapertussis PCR Not Detected (Not Detect.); Bordetella pertussis PCR Not Detected (Not Detect.); Chlamydia pneumoniae PCR Not Detected (Not Detect.); Coronavirus 229E PCR Not Detected (Not Detect.); Coronavirus HKU1 PCR Not Detected (Not Detect.); Coronavirus NL63 PCR Not Detected (Not Detect.); Coronavirus OC43 PCR Not Detected (Not Detect.); Human metapneumovirus PCR Not Detected (Not Detect.); Influenza A PCR Not Detected (Not Detect.); Influenza B PCR Not Detected (Not Detect.); Mycoplasma pneumoniae PCR Not Detected (Not Detect.); Parainfluenza 1 PCR Not Detected (Not Detect.); Parainfluenza 2 PCR Not Detected (Not Detect.); Parainfluenza 3 PCR Not Detected (Not Detect.); Parainfluenza 4 PCR Not Detected (Not Detect.); RSV PCR Detected (Not Detect.); Rhino/Enterovirus PCR Not Detected (Not Detect.)
[2024-10-23 11:51] LABS: Influenza A H1 PCR Not Detected (Not Detect.); Influenza A H1-2009 PCR Not Detected (Not Detect.); Influenza A H3 PCR Not Detected (Not Detect.); SARS-CoV-2 PCR Not Detected (Not Detect.)
== END 2024-10-22 05:41 | disposition home or self-care (01) ==
LOC: HO.MMNH3L 05:40
PROVIDERS: Visit Provider Student in an Organized Health Care Education/Training Program
DX: E11.9 Type 2 diabetes mellitus without complications (principal); I25.10 Atherosclerotic heart disease of native coronary artery without angina pectoris; F03.90 Unspecified dementia, unspecified severity, without behavioral disturbance, psychotic disturbance, mood disturbance, and anxiety; R05.8 Other specified cough
CPT/HCPCS: 0241U; 87633

== ENCOUNTER 2024-10-26 05:27 | Outpatient (REF) | payer MEDICARE, SELFPAY ==
[2024-10-26 05:30] LABS: MANUAL DIFF FLAG NO
[2024-10-26 05:51] LABS: Basophils Percent Auto 0.8 % (0-2); Eosinophils Absolute Auto 0.1 X10*3/uL (0.0-0.4); Eosinophils Percent Auto 2.7 % (0-4); Hematocrit 34.9 % (37.0-47.0); Hemoglobin 11.3 g/dl (12.0-16.0); Imm Gran Abs Auto 0.01 X10*3/uL (0.00-0.03); Imm Gran Pct Auto 0.2 % (0.0-0.4); Lymphocytes Absolute Auto 1.5 X10*3/uL (1.2-4.9); Lymphocytes Percent Auto 31.6 % (20-40); Mean Corpuscular HGB Conc 32.4 g/dl (31.0-35.0); Mean Corpuscular Hemoglobin 32.7 pg (27.0-33.0); Mean Corpuscular Volume 100.9 fL (80.0-98.0); Mean Platelet Volume 9.3 fL (9.4-12.3); Monocytes Absolute Auto 0.7 X10*3/uL (0.1-1.2); Neutrophils Absolute Auto 2.4 x10*3/uL (2.0-8.3); Neutrophils Percent Auto 49.7 % (45-73); Platelet Count 304 X10*3/uL (160-400); Red Blood Count 3.46 X10*6/uL (4.20-5.50); Red Cell Distribution Width 12.2 % (11.0-16.0); White Blood Count 4.7 X10*3/uL (4.8-10.8)
[2024-10-26 06:13] LABS: Alanine Aminotransferase 10 U/L (0-31); Albumin Level 3.4 g/dL (3.5-5.0); Alkaline Phosphatase 62 U/L (39-117); Anion Gap 12 (12-20); Aspartate Amino Transferase 19 U/L (5-31); Bilirubin Total 0.3 mg/dL (0.0-1.0); Blood Urea Nitrogen 18 mg/dL (9-16); Calcium 9.2 mg/dL (8.4-10.2); Carbon Dioxide 27 mmol/L (22-29); Chloride 106 mmol/L (96-108); Estimated Glomerular Filt Rate > 60; Glucose Random 92 mg/dL (60-115); Potassium 3.7 mmol/L (3.3-5.1); Sodium 141 mmol/L (135-145); Total Protein 6.1 g/dL (6.5-8.0)
[2024-10-26 06:30] LABS: Thyroid Stimulating Hormone 2.56 uIU/mL (0.32-4.0)
[2024-10-26 07:39] LABS: Estimated Average Glucose 108 mg/dL; Hemoglobin A1C 111.3321 umol/L; Hemoglobin A1c % 5.4 % (<6.0)
== END 2024-10-26 05:28 | disposition home or self-care (01) ==
LOC: HO.MMNH3L 05:27
PROVIDERS: Visit Provider Nurse Practitioner
DX: E11.9 Type 2 diabetes mellitus without complications (principal)
CPT/HCPCS: 36415; 80053; 83036; 84443; 85025

== ENCOUNTER 2024-11-17 17:20 | Emergency (ER) | payer MEDICARE, SELFPAY ==
--- NOTE | 2024-11-17 17:27 | ED_ITS ---
HPI - General Adult General Chief complaint: Psychiatric Symptoms Stated complaint: from snf, increased aggression Time Seen by Provider: 11/17/24 17:26 Source: patient Mode of arrival: ambulatory Limitations: no limitations History of Present Illness ED Provider: HPI narrative: Patient is 83 years old with history of dementia with psychotic behavior came here because she was very aggressive spitting kicking and throwing chairs at the staff patient was calm and cooperative with EMS in the ER relax without any significant agitation patient is on Seroquel for agitation per nursing staff patient has refused her medication today Related Data Home Medications ?Medication ?Instructions ?Recorded ?Confirmed quetiapine 25 mg tablet (Seroquel) 12.5 mg PO BID 07/17/24 11/18/24 acetaminophen 325 mg tablet 650 mg PO Q8H PRN Pain/Fever 11/18/24 11/18/24 albuterol sulfate 90 mcg/actuation 2 puff inhalation Q6H PRN 11/18/24 11/18/24 aerosol inhaler (Ventolin HFA) Shortness Of Breath Or Wheezing bisacodyl 10 mg rectal suppository 10 mg KS DAILY PRN Constipation 11/18/24 11/18/24 (Dulcolax (bisacodyl)) dextrose 40 % oral gel (Glucose 15 g PO Q15M PRN Hypoglycemia 11/18/24 11/18/24 Gel) docusate sodium 100 mg capsule 100 mg PO DAILY 11/18/24 11/18/24 (Colace) glucagon HCl 1 mg solution for 1 mg subcut Q20M PRN Hypoglycemia 11/18/24 11/18/24 injection (Glucagon (HCl) Emergency Kit) latanoprost 0.005 % eye drops 1 drp ophthalmic (eye) BEDTIME 11/18/24 11/18/24 lidocaine 4 % topical patch 1 patch topical DAILY PRN Right 11/18/24 11/18/24 Knee magnesium hydroxide 400 mg/5 mL 30 ml PO DAILY PRN Constipation 11/18/24 11/18/24 oral suspension (Milk of Magnesia) mirtazapine 15 mg tablet (Remeron) 7.5 mg PO BEDTIME 11/18/24 11/18/24 quetiapine 25 mg tablet (Seroquel) 12.5 mg PO BID PRN Anxiety 11/18/24 11/18/24 sodium phosphates 19 gram-7 118 ml KS DAILY PRN Constipation 11/18/24 11/18/24 gram/118 mL enema (Fleet Enema) Allergies Allergy/AdvReac Type Severity Reaction Status Date / Time gabapentin [From NEURONTIN] Allergy Unknown RASH Verified 11/17/24 18:02 Review of Systems 2 Review of Systems: Yes Unobtainable due to mental status PMFSH Social History Social History Smoked in Last 30 Days: No Use of substances other than those prescribed or required for medical reasons: No Advance Directives: No Advance Directives Information Provided: No Do you have a plan to hurt others: No Plan Physical Exam ED Vital Signs: Vital Signs - 24 hr 11/18/24 16:17 11/19/24 03:01 11/19/24 05:06 Temperature 97.4 F 96.8 F Pulse Rate 88 96 Respiratory Rate 18 16 24 H Blood Pressure 149/77 H 156/72 H Pulse Oximetry 99 100 Oxygen Delivery Method Room Air Room Air 11/19/24 05:56 11/19/24 12:19 Temperature 98 F Pulse Rate 16 L 84 Respiratory Rate 16 Blood Pressure 174/101 H Pulse Oximetry 100 Oxygen Delivery Method Room Air BMI result Body Mass Index 21.8 Appearance: Alert. And awake a x o x 2 No acute distress. Eyes: PERRLA, No Nystagmus ENT: Pharynx normal. Oral Mucosa moist Neck: Normal inspection. Neck supple. CVS: Normal heart rate and rhythm. Pulses normal. Respiratory: No respiratory distress. Equal air entry bilateral, no wheezing/rales/rhonchi Abdomen: Soft and nontender. Bowel sounds are present, no mass palpable, no CVA tenderness Skin: Skin warm and dry. Normal skin color. Normal skin turgor. Extremities: No lower extremity edema. No calf tenderness Neuro: Oriented X 2. No motor deficit. No sensory deficit.No cerebellar signs , cranial nerves II-XII intact Course Reevaluation(s) Reevaluation #1: Time: 09:33 Date: 11/18/24 Provider: Hernando Conteh MD Patient in physician observation for psychiatric evaluation.? No acute events reported overnight. No current complaints. VS stable.? Patient is in bed search status/pending CARE team evaluation. Will continue to monitor. Time: 08:36 Reevaluation #2: 08:36 11/19/24 SHALINI Almazan Patient remains on physician observation pending determination of capacity by Psychiatry. No overnight events reported by nursing. Case management following for disposition. Reevaluation #3: Time: 15:15 Date: 11/19/24 Provider: Rosaline Potts NP Physician observation ended at __1515___. Patient has been cleared for discharge with psych recommendations for med management. Will follow up as an outpatient. /Patient to be transferred back to SNF. Medications Administered Generic Name Dose Route Start Last Admin Trade Name Freq PRN Reason Stop Dose Admin Docusate Sodium 100 mg 11/19/24 09:00 11/19/24 08:35 Docusate Sodium 100 Mg Capsule PO Not Given DAILY KAREN Latanoprost 1 drop 11/18/24 21:00 11/18/24 20:06 Latanoprost 0.005 % Ophth Arelis 2.5 Ml Drops EYE-BOTH Not Given BEDTIME KAREN Mirtazapine 7.5 mg 11/18/24 21:00 11/18/24 20:09 Mirtazapine 7.5 Mg Tablet PO Not Given BEDTIME KAREN Olanzapine 2.5 mg 11/19/24 12:24 11/19/24 13:20 Olanzapine 2.5 Mg Tablet PO 2.5 mg TID PRN Administration agitation Olanzapine 2.5 mg 11/19/24 15:00 11/19/24 14:57 Olanzapine 2.5 Mg Tablet PO 2.5 mg BID@0900,1500 KAREN Administration Discontinued Medications Generic Name Dose Route Start Last Admin Trade Name Freq PRN Reason Stop Dose Admin Lorazepam 0.5 mg 11/18/24 11:48 11/18/24 11:53 Lorazepam 0.5 Mg Tablet PO 11/18/24 11:49 0.5 mg ONCE ONE Administration Lorazepam 1 mg 11/19/24 05:57 11/19/24 06:05 Lorazepam 1 Mg Tablet PO 11/19/24 05:58 1 mg ONCE ONE Administration Olanzapine 2.5 mg 11/17/24 22:23 11/17/24 22:28 Olanzapine 2.5 Mg Tablet PO 11/17/24 22:24 2.5 mg ONCE ONE Administration Olanzapine 2.5 mg 11/18/24 09:45 11/18/24 10:24 Olanzapine 2.5 Mg Tablet PO 11/18/24 09:46 2.5 mg DAILY MRX1 ONE Administration Olanzapine 2.5 mg 11/18/24 11:47 11/18/24 11:53 Olanzapine 2.5 Mg Tablet PO 11/18/24 11:48 2.5 mg ONCE ONE Administration Olanzapine 5 mg 11/18/24 20:52 11/18/24 21:05 Olanzapine 5 Mg Tablet PO 11/18/24 20:53 5 mg ONCE ONE Administration Olanzapine 2.5 mg 11/19/24 04:58 11/19/24 05:02 Olanzapine 2.5 Mg Tablet PO 11/19/24 04:59 2.5 mg ONCE ONE Administration Quetiapine Fumarate 25 mg 11/17/24 21:41 11/17/24 21:52 Quetiapine Fumarate 25 Mg Tablet PO 11/17/24 21:42 25 mg ONCE ONE Administration Quetiapine Fumarate 25 mg 11/18/24 09:46 11/18/24 10:24 Quetiapine Fumarate 25 Mg Tablet PO 11/18/24 09:47 25 mg DAILY ONE Administration Quetiapine Fumarate 12.5 mg 11/18/24 15:39 11/19/24 10:09 Quetiapine Fumarate 25 Mg Tablet PO 12.5 mg BID PRN Administration Anxiety Quetiapine Fumarate 12.5 mg 11/18/24 18:12 11/18/24 18:21 Quetiapine Fumarate 25 Mg Tablet PO 11/18/24 18:13 12.5 mg ONCE ONE Administration Medical Decision Making Medical Decision Making MDM Narrative: Patient with increased agitation and hallucination delusions did not take her Seroquel today staff wants her to be seen by care team of medication Patient has received Seroquel 25 mg times Zyprexa 2.5 mg in the ER sleeping without any significant agitation awaiting for care team evaluation Lab Data MDM Lab Attestation statement: I reviewed the patient's lab results. 11/17/24 19:13 11/17/24 19:13 Labs: Lab Results 11/17/24 11/18/24 Range/Units 19:13 02:17 WBC 7.0 (4.8-10.8) X10*3/uL RBC 3.94 L (4.20-5.50) X10*6/uL Hgb 13.1 (12.0-16.0) g/dl Hct 36.9 L (37.0-47.0) % MCV 93.7 (80.0-98.0) fL MCH 33.2 H (27.0-33.0) pg MCHC 35.5 H (31.0-35.0) g/dl RDW 11.7 (11.0-16.0) % Plt Count 288 (160-400) X10*3/uL MPV 9.3 L (9.4-12.3) fL Immature Gran % (Auto) 0.3 (0.0-0.4) % Neut % (Auto) 64.3 (45-73) % Lymph % (Auto) 19.7 L (20-40) % [place] % (Auto) 15.3 H (2-11) % Eos % (Auto) 0.0 (0-4) % Baso % (Auto) 0.4 (0-2) % Lymph # (Auto) 1.4 (1.2-4.9) X10*3/uL [place] # (Auto) 1.1 (0.1-1.2) X10*3/uL Eos # (Auto) 0.0 (0.0-0.4) X10*3/uL Baso # (Auto) 0.0 (0.0-0.2) X10*3/uL Abs Immat Gran (auto) 0.02 (0.00-0.03) X10*3/uL Absolute Neuts (auto) 4.5 (2.0-8.3) x10*3/uL Absolute Nucleated RBC 0.000 (0.0-0.012) X10*3/uL Nucleated RBC % (auto) 0.0 (0.0-0.2) /100WBC Sodium 144 (135-145) mmol/L Potassium 3.2 L (3.3-5.1) mmol/L Chloride 110 H (96-108) mmol/L Carbon Dioxide 19 L (22-29) mmol/L Anion Gap 18 (12-20) BUN 23 H (9-16) mg/dL Creatinine 0.81 (0.5-1.4) mg/dL Estim Creat Clear Calc 41.6 Estimated GFR > 60 Random Glucose 107 (60-115) mg/dL Calcium 9.7 (8.4-10.2) mg/dL Total Bilirubin 1.0 (0.0-1.0) mg/dL AST 21 (5-31) U/L ALT 9 (0-31) U/L Alkaline Phosphatase 72 (39-117) U/L Total Protein 6.9 (6.5-8.0) g/dL Albumin 3.9 (3.5-5.0) g/dL Urine Color Yellow Urine Appearance Clear Urine pH 8.5 (5.0-9.0) Ur Specific [place] 1.015 (1.005-1.025) Urine Protein Negative (Neg-Trace) mg/dL Urine Glucose (UA) Negative (Negative) mg/dL Urine Ketones Trace (Negative) mg/dL Urine Blood Negative (Negative) Urine Nitrite Negative (Negative) Ur Leukocyte Esterase Trace H (Negative) Urine RBC 0-2 (0-2) /HPF Urine WBC 0-5 (0-5) /HPF Ur Squamous Epith Cells 0-2 (0-2) /HPF Urine Bacteria 4+ (None Seen) Hyaline Casts 0-2 (0-2) /LPF Independent Interpretation I performed an independent interpretation of an: EKG Interpretation: Normal sinus rhythm heart rate 85 beats per minute left axis deviation right bundle-branch block QTC 511 Discharge Plan Discharge Clinical Impression: Dementia with aggressive behavior Patient Disposition: Xfer SNF Transfer Details: [facility] Instructions: Dementia (ED) Additional Instructions: See note with medication recommendations from psych. Prescriptions: No Action lidocaine 4 % Adhesive Patch,Medicated 1 patch TOPICAL DAILY PRN (Reason: Right Knee) Patient Comments: right knee Rx Instructions: Apply to right knee for pain. dextrose [Glucose Gel] 40 % Gel 15 g PO Q15M PRN (Reason: Hypoglycemia) Rx Instructions: until symptoms of low blood sugar are controlled bisacodyl [Dulcolax (bisacodyl)] 10 mg Suppository 10 mg KS DAILY PRN (Reason: Constipation) Rx Instructions: If no BM in 3 days. docusate sodium [Colace] 100 mg Capsule 100 mg PO DAILY glucagon HCl [Glucagon (HCl) Emergency Kit] 1 mg Recon Soln 1 mg SUBCUT Q20M PRN (Reason: Hypoglycemia) Rx Instructions: until target blood sugar attained quetiapine [Seroquel] 25 mg Tablet 12.5 mg PO BID PRN (Reason: Anxiety) Patient Comments: other hallucination acetaminophen 325 mg Tablet 650 mg PO Q8H PRN (Reason: Pain/Fever) magnesium hydroxide [Milk of Magnesia] 400 mg/5 mL Suspension 30 ml PO DAILY PRN (Reason: Constipation) mirtazapine [Remeron] 15 mg Tablet 7.5 mg PO BEDTIME Patient Comments: anxiety and appetite latanoprost 0.005 % Drops 1 drp OPHTHALMIC (EYE) BEDTIME Fleet Enema 19-7 gram/118 mL Enema 118 ml KS DAILY PRN (Reason: Constipation) Rx Instructions: If no result from Dulcolax albuterol sulfate [Ventolin HFA] 90 mcg/actuation HFA aerosol inhaler 2 puff INHALATION Q6H PRN (Reason: Shortness Of Breath Or Wheezing) quetiapine [Seroquel] 25 mg Tablet 12.5 mg PO BID Patient Comments: anxiety Referrals: Physician,Unknown J [Physician] - Interventions: [place]-Suicide Risk Severity Scale Last Done: 11/17/24 18:04 Print Language: [place]
[2024-11-17 17:30] VITALS: BP 93/70; PULSE 88; RESP 18; TEMP 36.4; O2SAT 100; BMI 21.8
--- NOTE | 2024-11-17 17:30 | ECG_ITS ---
Test Reason : QTC INTERVAL CHECK Blood Pressure : */* mmHG Vent. 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
[2024-11-17 17:33] VITALS: BP 175/100; PULSE 78; O2SAT 100
[2024-11-17 17:35] VITALS: BP 93/70; PULSE 88; RESP 16; TEMP 36.4; O2SAT 100
[2024-11-17 18:00] VITALS: BP 151/106; PULSE 83; RESP 16; TEMP 36.6; O2SAT 98
[2024-11-17 19:16] LABS: MANUAL DIFF FLAG NO
[2024-11-17 19:23] LABS: Basophils Percent Auto 0.4 % (0-2); Hematocrit 36.9 % (37.0-47.0); Hemoglobin 13.1 g/dl (12.0-16.0); Imm Gran Abs Auto 0.02 X10*3/uL (0.00-0.03); Imm Gran Pct Auto 0.3 % (0.0-0.4); Lymphocytes Absolute Auto 1.4 X10*3/uL (1.2-4.9); Lymphocytes Percent Auto 19.7 % (20-40); Mean Corpuscular HGB Conc 35.5 g/dl (31.0-35.0); Mean Corpuscular Hemoglobin 33.2 pg (27.0-33.0); Mean Corpuscular Volume 93.7 fL (80.0-98.0); Mean Platelet Volume 9.3 fL (9.4-12.3); Monocytes Absolute Auto 1.1 X10*3/uL (0.1-1.2); Monocytes Percent Auto 15.3 % (2-11); Neutrophils Absolute Auto 4.5 x10*3/uL (2.0-8.3); Neutrophils Percent Auto 64.3 % (45-73); Platelet Count 288 X10*3/uL (160-400); Red Blood Count 3.94 X10*6/uL (4.20-5.50); Red Cell Distribution Width 11.7 % (11.0-16.0)
[2024-11-17 19:31] LABS: Alanine Aminotransferase 9 U/L (0-31); Albumin Level 3.9 g/dL (3.5-5.0); Alkaline Phosphatase 72 U/L (39-117); Anion Gap 18 (12-20); Aspartate Amino Transferase 21 U/L (5-31); Blood Urea Nitrogen 23 mg/dL (9-16); Calcium 9.7 mg/dL (8.4-10.2); Carbon Dioxide 19 mmol/L (22-29); Chloride 110 mmol/L (96-108); Creatinine Clr Calc Pharmacy 41.6; Estimated Glomerular Filt Rate > 60; Glucose Random 107 mg/dL (60-115); Potassium 3.2 mmol/L (3.3-5.1); Sodium 144 mmol/L (135-145); Total Protein 6.9 g/dL (6.5-8.0)
[2024-11-17 20:00] VITALS: BP 188/71; PULSE 109; RESP 16; O2SAT 98
--- NOTE | 2024-11-17 21:11 | MHC.EDTECH ---
Patient inc therefore patient changed and repositioned
--- NOTE | 2024-11-17 21:43 | PC.NURSE ---
Spoke to GEORGINA Burger from pt. facility, informed RN that pt. picks and choices when she wants her meds and that she was not given her meds today. Also, facility not able to adjust medication so pt. should have a consult for CARE team or pedrito-psych. aware.
[2024-11-17] MEDS: QUEtiapine Fumarate 25 MG TABLET PO (21:52)
[2024-11-17 22:00] VITALS: BP 173/86; PULSE 101; RESP 16; O2SAT 96
[2024-11-17] MEDS: OLANZapine 2.5 MG TABLET PO (22:28)
--- NOTE | 2024-11-17 22:32 | MHC.EDTECH ---
Patient inc therefore patient changed and repositioned
--- NOTE | 2024-11-17 23:06 | PC.NURSE ---
Report given to GEORGINA Torres.
--- NOTE | 2024-11-18 00:21 | MHC.EDTECH ---
Tech resumed care at 2300. oil recovery operator done on previous shift. Belongings listed found at bedside
--- NOTE | 2024-11-18 00:35 | PC.NURSE ---
Report received and care assumed at 2300. Pt found to be resting comfortably in stretcher with eyes closed, mouth open and respirations even and unlabored without distress noted.
[2024-11-18 02:17] VITALS: BP 147/81; PULSE 88; RESP 16; TEMP 36.8; O2SAT 100
[2024-11-18 02:31] LABS: Appearance Urine Clear; Color Urine Yellow; Glucose Urine UA Negative (Negative); Leukocyte Esterase Urine Trace (Negative); Nitrite Urine Negative (Negative); PH 8.5 (5.0-9.0); Specific Gravity - Urine 1.015 (1.005-1.025); UMIC TRIGGER UACC YES; Urine Blood Negative (Negative); Urine Ketones Trace mg/dL (Negative); Urine Protein Negative (Neg-Trace)
[2024-11-18 02:49] LABS: Bacteria Urine 4+ (None Seen); Hyaline Casts Urine 0-2 /LPF (0-2); RBC Urine 0-2 /HPF (0-2); Squamous Epithelial Cell Urine 0-2 /HPF (0-2); WBC Urine 0-5 /HPF (0-5)
[2024-11-18 06:31] VITALS: BP 124/58; PULSE 88; RESP 16; TEMP 36.7; O2SAT 100
--- NOTE | 2024-11-18 08:11 | PC.NURSE ---
patient only belongings at bedside found this shift (pants) locked up in [facility] shelf one.
[2024-11-18 09:05] VITALS: BP 142/75; PULSE 96; RESP 16; TEMP 36.7; O2SAT 94
--- NOTE | 2024-11-18 09:56 | MHC.CARE ---
Pt does not meet the criteria for IPLOC. A psych consult has been placed for capacity and Pt's disposition is case management
--- NOTE | 2024-11-18 10:09 | MHC.CM.ED ---
Received case management consult from Dr Conteh. Patient came to the ER due to AMS. Patient was cleared by Care Team. Psych consult ordered and pending. CM consult on hold until psych consult completed. Continue to monitor for d/c needs.
[2024-11-18] MEDS: QUEtiapine Fumarate 25 MG TABLET PO (10:24)
[2024-11-18] MEDS: OLANZapine 2.5 MG TABLET PO ×2 (10:24→11:53)
--- NOTE | 2024-11-18 10:31 | PC.NURSE ---
patient anxious appearing in room, crying out in room. medicated per the MAR w/ medications crushed in pudding.
--- NOTE | 2024-11-18 11:48 | PC.NURSE ---
patient continues to be anxious in room, restless. appears to be hallucinating and seeing three sets of green birds and talking nonsensical to self in room
[2024-11-18] MEDS: LORazepam 0.5 MG TABLET PO (11:53)
--- NOTE | 2024-11-18 12:10 | PC.NURSE ---
medicated per the MAR, patient appears to be resting quietly at this time with even and unlabored respirations. no obvious signs/symptoms of distress currently noted.
[2024-11-18 12:25] VITALS: BP 125/64; PULSE 90; RESP 14; O2SAT 96
--- NOTE | 2024-11-18 12:30 | P.CNPS_ITS ---
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 seems unlikely); they report patient made paranoid statement about staff poisoning food..). Staff at the long term report that patient is generally calm and if not, easily redirectable; for the past 5 days she has been escalating, paranoid, aggressive, crying and unable to be redirected. Patient started refusing her medications. Patient sent to the ED for assessment. Patient reports remembering that she got angry and upset... And said I was pushing people since... She is not sure and laments her memory loss but says she was feeling angry and scared. She denies refusing medications. Patient denies any paranoid ideations or thoughts that someone poisoned her food but did make a comment about taking a poison drug.... She said she thought maybe she had a stroke and again says I am losing my memory... 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 Patient said she feels pushed around at long term. In the ED patient has thus far been in good behavioral control. Past Psychiatric History: Dementia Medical Evaluation Reviewed: Yes Diagnostics Vital Signs (24Hr): Vital Signs - 24 hr 11/17/24 17:30 11/17/24 17:35 11/17/24 18:00 Temperature 97.6 F 97.6 F 97.8 F Pulse Rate 88 88 83 Respiratory Rate 18 16 16 Blood Pressure 93/70 93/70 151/106 H Pulse Oximetry 100 100 98 Oxygen Delivery Method Room Air Room Air Room Air 11/17/24 20:00 11/17/24 22:00 11/18/24 02:17 Temperature 98.2 F Pulse Rate 109 H 101 H 88 Respiratory Rate 16 16 16 Blood Pressure 188/71 H 173/86 H 147/81 H Pulse Oximetry 98 96 100 Oxygen Delivery Method Room Air Room Air 11/18/24 06:31 11/18/24 09:05 11/18/24 12:25 Temperature 98.0 F 98.0 F Pulse Rate 88 96 90 Respiratory Rate 16 16 14 Blood Pressure 124/58 L 142/75 H 125/64 Pulse Oximetry 100 94 96 Oxygen Delivery Method Room Air Room Air Room Air BMI result Body Mass Index 21.8 Labs 11/17/24 19:13 11/17/24 19:13 Labs: Laboratory Results - last 48 hr 11/17/24 11/18/24 19:13 02:17 WBC 7.0 RBC 3.94 L Hgb 13.1 Hct 36.9 L MCV 93.7 MCH 33.2 H MCHC 35.5 H RDW 11.7 Plt Count 288 MPV 9.3 L Immature Gran % (Auto) 0.3 Neut % (Auto) 64.3 Lymph % (Auto) 19.7 L [place] % (Auto) 15.3 H Eos % (Auto) 0.0 Baso % (Auto) 0.4 Lymph # (Auto) 1.4 [place] # (Auto) 1.1 Eos # (Auto) 0.0 Baso # (Auto) 0.0 Abs Immat Gran (auto) 0.02 Absolute Neuts (auto) 4.5 Absolute Nucleated RBC 0.000 Nucleated RBC % (auto) 0.0 Sodium 144 Potassium 3.2 L Chloride 110 H Carbon Dioxide 19 L Anion Gap 18 BUN 23 H Creatinine 0.81 Estim Creat Clear Calc 41.6 Estimated GFR > 60 Random Glucose 107 Calcium 9.7 Total Bilirubin 1.0 AST 21 ALT 9 Alkaline Phosphatase 72 Total Protein 6.9 Albumin 3.9 Urine Color Yellow Urine Appearance Clear Urine pH 8.5 Ur Specific [place] 1.015 Urine Protein Negative Urine Glucose (UA) Negative Urine Ketones Trace Urine Blood Negative Urine Nitrite Negative Ur Leukocyte Esterase Trace H Urine RBC 0-2 Urine WBC 0-5 Ur Squamous Epith Cells 0-2 Urine Bacteria 4+ Hyaline Casts 0-2 Mental Status Exam Mental Status Exam Narrative: Pt is alert and oriented; behavior is cooperative, friendly , anxious; patient is not in distress; unkempt hair; mood is described as angry... Scared and affect congruent; eye contact appropriate; Speech is normal rate, volume and prosody and not pressured; currently no psychomotor agitation/retardation present; thought process is goal directed but gets distracted mid thought; Thought content is on recent episode, current situation, memory loss; some paranoid ideations; denies any SI/HI. Not clear about AH Patients insight and judgment impaired. 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 seems unlikely) and making paranoid statement about staff poisoning food; some AH. Staff at the long term report that patient is generally calm and if not, easily redirectable; for the past 5 days she has been escalating, paranoid, aggressive, crying and unable to be redirected. Patient started refusing her medications. Patient sent to the ED for assessment. Patient reports remembering that she got angry and upset... And said I was pushing people since... She is not sure and laments her memory loss but says she was feeling angry and scared. She denies refusing medications. Patient denies any paranoid ideations or thoughts that someone poisoned her food but did make a comment about taking a poison drug.... She said she thought maybe she had a stroke and again says I am losing my memory... 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 Patient said she feels pushed around at long term. In the ED patient has thus far been in good behavioral control. Impression: Patient does NOT have capacity (not fully oriented, does not remember details, says she was taking her medications when refusing, some paranoid ideations present and unable to distinguish from reality) Patient has a history of dementia. Currently it is not clear what precipitated this change from baseline and why she became aggressive for the past several days; labs grossly unremarkable except for mild hypokalemia (that said, even small electrolyte imbalances in elderly patient with dementia could possibly tip the balance towards delirium). Perhaps patient was refusing Seroquel which aided in her decompensation. In the ED, she has thus far been in good behavioral control. And looking at her it is hard to believe she actually threw a chair. At this point, since whatever was going on seems to be resolving, will refer to case management; however, during which time we will continue to monitor Plan: Refer to case management Will Invoke healthcare proxy (If there is one) Will DC Seroquel given mildly prolonged QTC Will add Zyprexa instead to help manage behaviors as it has less risk of prolonging QTC -repeat electrolytes and monitor potassium Total time managing care of this patient today ____ minutes. Patient educated on: diagnosis, medication risk/benefits and therapeutic strategies Informed Consent: does not understand
--- NOTE | 2024-11-18 13:49 | PC.NURSE ---
resting quietly in room w/ no obvious signs/symptoms of distress currently. awaiting psych/cm consults. wakes easily to verbal stimuli
--- NOTE | 2024-11-18 14:43 | PHA.MEDREC ---
Addendum entered by Arias Dale RPh 11/18/24 15:30: MED REC CHECKED BY [facility] Original Note: Pharmacy Consult ? Medication Reconciliation Pharmacy reviewed med rec done by nursing. Utilized list from [facility] to confirm the med rec.
[2024-11-18 16:17] VITALS: BP 149/77; PULSE 88; RESP 18; TEMP 36.3; O2SAT 99
--- NOTE | 2024-11-18 17:41 | PC.NURSE ---
pt arrived in overflow and is very anxious. she is moaning and is difficult to calm. calling out to people who are not there.
[2024-11-18] MEDS: QUEtiapine Fumarate 25 MG TABLET 12.5 MG PO ×2 (17:44→18:21)
--- NOTE | 2024-11-18 17:44 | PC.NURSE ---
PRN seroquel given per SEP. reached out to covering PA - pt is hyperventilating, very anxious and is not able to calm down. She is not lashing out or aggressive but she is very anxious.
[2024-11-18] MEDS: OLANZapine 5 MG TABLET PO (21:05)
--- NOTE | 2024-11-18 21:27 | PC.NURSE ---
Addendum entered by Silvina Flores 11/19/24 06:13: provider placed order for ativan. patient continued to be restless after Zyprexa. med crushed in pudding. patient put in her mouth then spit at staff. provider aware. Addendum entered by Silvina Flores 11/19/24 05:55: patient began to be restless and yelling out again. zyprexa PO ordered and administered. Addendum entered by Silvina Flores 11/18/24 22:14: patient calm, cooperative, conversing with staff. linens changed and personal care done for patient. Original Note: patient restless, talking to people who are there sine start of this RN shift at 1900. patient was medicated by prior RN. meds did not seem to be helping patient as symptoms continued. this RN reached out to PA who ordered PO Zyprexa. patient took and now resting quietly.
--- NOTE | 2024-11-19 01:51 | MHC.EDTECH ---
Ambulated with Pt to and from bathroom. Pt insistent of going to the kitchen to eat, needed some redirection but eventually laid back in bed without incident.
[2024-11-19 03:01] VITALS: RESP 16
[2024-11-19] MEDS: OLANZapine 2.5 MG TABLET PO ×3 (05:02→14:57)
[2024-11-19 05:06] VITALS: BP 156/72; PULSE 96; RESP 24; TEMP 36; O2SAT 100
[2024-11-19 05:56] VITALS: PULSE 16
[2024-11-19] MEDS: LORazepam 1 MG TABLET PO (06:05)
[2024-11-19] MEDS: QUEtiapine Fumarate 25 MG TABLET 12.5 MG PO (10:09)
--- NOTE | 2024-11-19 10:22 | PC.NURSE ---
pt noted to be extremely anxious/irritable. having visual hallucinations/speaking w/ people who aren't here/inanimate objects. prn medication utilized. effectiveness pending. bed alarm remains in place for safety precautions. plan of care ongoing. call parker placed within reach.
--- NOTE | 2024-11-19 11:51 | PC.NURSE ---
Patient is 83 years old with history of dementia with psychotic behavior came here because she was very aggressive spitting kicking and throwing chairs at the staff patient was calm and cooperative with EMS in the ER relax without any significant agitation patient is on Seroquel for agitation per nursing staff patient has refused her medication today. Patient alert and confused, sl restless with frequent attempts to get oob. Lungs clear bilat. Respirations even and non-labored. Abdomen soft, non-tender with positive bowel sounds. Positive pedal pulses with no edema. Psych consult obtained and pending plan moving forward.
[2024-11-19 12:19] VITALS: BP 174/101; PULSE 84; RESP 16; TEMP 36.6; O2SAT 100
--- NOTE | 2024-11-19 13:36 | PC.NURSE ---
Patient increasingly confused, speaking illogically, and extremely anxious. Medicated with prn zyprexa. Waiting results
--- NOTE | 2024-11-19 14:44 | MHC.CM.ED ---
Pt is a bed hold from [facility] and was brought to ED for aggressive behaviors. Pt seen by Crisis - no acute INPT needs. Psych saw pt and determined that she is unable to make her own healthcare decisions but has been cooperative and behavior free while in ED. Per [facility], they are pursuing guardianship and will accept pt back today. Attempted to contact pt's emergency contact: no answer or ability to leave a message. Joel GORDILLO arranged for 3pm transfer today. ED care team aware of plan
[2024-11-19 15:24] VITALS: BP 174/101; PULSE 84; RESP 16; TEMP 36.6; O2SAT 100
== END 2024-11-19 15:26 | disposition skilled nursing facility (03) ==
PROVIDERS: Internal Medicine; Emergency Provider Emergency Medicine; PCP Nurse Practitioner
DX: R41.0 Disorientation, unspecified (principal); F03.911 Unspecified dementia, unspecified severity, with agitation; R44.3 Hallucinations, unspecified; R45.6 Violent behavior; I45.10 Unspecified right bundle-branch block; Z79.899 Other long term (current) drug therapy
CPT/HCPCS: 36415; 80053; 81001; 85025; 93005; 99285; S9485

== ENCOUNTER → 2024-11-17 17:30 | Outpatient (BNV) | payer MEDICARE, SELFPAY | PROVIDERS: Emergency Provider Internal Medicine; Visit Provider Internal Medicine Cardiovascular Disease | DX: I45.10 Unspecified right bundle-branch block (principal); I25.2 Old myocardial infarction | CPT/HCPCS: 93010 ==

== ENCOUNTER → 2024-11-17 18:48 | Outpatient (BNV) | payer MEDICARE, SELFPAY | PROVIDERS: Emergency Provider Emergency Medicine; PCP Nurse Practitioner; Visit Provider Psychiatry & Neurology Psychiatry | DX: F03.90 Unspecified dementia, unspecified severity, without behavioral disturbance, psychotic disturbance, mood disturbance, and anxiety (principal); R41.0 Disorientation, unspecified | CPT/HCPCS: 99284 ==

== ENCOUNTER 2025-01-03 06:34 | Outpatient (REF) | payer MEDICARE, SELFPAY ==
[2025-01-03 06:36] LABS: MANUAL DIFF FLAG NO
--- OUTSIDE RECORDS SUMMARY | 2025-01-03 06:36 | XMS_ITS | Patient Health Record ---
Author Organization [facility] Address [address] [place] [address] Care Team Providers Care Paper Products Inspector Name Role Phone Tyson Goff MD Primary Care Provider Blair Tomas Jr Unavailable Allergies Allergen (clinical drug ingredient) Drug/Non Drug Allergy documented on EMR Reaction Allergy Type Onset Date Status gabapentin Gabapentin Unknown Drug Allergy Activ e isoniazid INH (uncoded) Unknown Allergy Active seasonal (uncoded) Unknown Allergy A ctive Reason For Referral No Information Medications Medication SIG (Take, Route, Frequency, Duration) Notes Start Date End Date Status Breo Ellipta 100-25 MCG/INH 1 puff Inhal ation Once a day Active Colyte with Flavor Packs 240 GM As directed Orally Over the specified time. for 1 day(s) Active Fexofenadine HCl 180 MG 1 tablet as need ed Orally Once a day Active Fluticasone Propionate 50 MCG/DOSE 1 spray in each nostril Nasally Once a day Active Simvastatin 10 MG 1 tablet in the even ing Orally Once a day Active Move Free Joint [facility] Advance - 1 Orally QAM Active Singulair 10 MG 1 tablet Orally Once a day Active Vision Formula - 1 Orally QD A ctive Lasix 20 MG 1 tablet Orally Once a day Active glipiZIDE XL 5 MG 1 tablet Orally Once a day Active Aspir-81 81 MG 1 tablet Orally Once a day Active Latanoprost 0.005 % 1 drop into affected eye in the evening Ophthalmic Once a day Active FLUoxetine HCl 20 MG 1 capsule Orally On ce a day Active DSS 100 MG 1 capsule as needed Orally Once a day Active Lisinopril 20 MG 1 tablet Orally Once a day Active Centrum Silver - 1 Orally QD A ctive Proventil HFA 108 (90 Base) MCG/ACT 2 puffs as needed Inhalation every 6 hrs Active Citracal Plus - 2 Orally QD Ac tive Immunizations Vaccine Route Administration Date Status Comme nts Influenza Unknown 05/11/2018 Administered Social History Tobacco Use: Social History Observation Description Date Details (start date - stop date) Never Smoker NA - NA Tobacco Use/Smoking Question Answer Notes Patient is a nonsmoker Alcohol Screen Question Answer Notes Did you have a drink containing alcohol in the p ast year? No Points 0 Interpretation Negative Problems Problem Type SNOMED Code ICD Code Onset Dates Problem Status W/U Status Risk Notes Problem 350434504 Colon cancer screening (Z12.11) Active confirmed Problem 771360427163073 skilled nursing (current) use of aspirin (Z79.82) Active confirmed Problem 802594994630641 skilled nursing (current) use of oral hypoglycemic drugs (Z79.84) Active confirmed Plan Of Treatment Future Test Test Name Order Date COLONOSCOPY 06/10/2018 Insurance Providers Payer Name Payer Address Payer Phone Subscriber Number Group Number Insured Name Patient Relationship to Insured Coverage Start Date Coverage End Date [place] [address] [place] [address] [id number] NGASTEPHEN Self - patient is the insured MEDEX ATTN CLAIMS [address] [place] [address] [id number] NGASTEPHEN Self - patient is the insured Medical (General) History Medical History History ICD Code 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
[2025-01-03 07:22] LABS: Basophils Absolute Auto 0.1 X10*3/uL (0.0-0.2); Basophils Percent Auto 1.1 % (0-2); Eosinophils Absolute Auto 0.1 X10*3/uL (0.0-0.4); Eosinophils Percent Auto 1.1 % (0-4); Hemoglobin 10.6 g/dl (12.0-16.0); Imm Gran Abs Auto 0.01 X10*3/uL (0.00-0.03); Imm Gran Pct Auto 0.2 % (0.0-0.4); Lymphocytes Absolute Auto 1.1 X10*3/uL (1.2-4.9); Lymphocytes Percent Auto 24.7 % (20-40); Mean Corpuscular HGB Conc 32.1 g/dl (31.0-35.0); Mean Corpuscular Hemoglobin 32.5 pg (27.0-33.0); Mean Corpuscular Volume 101.2 fL (80.0-98.0); Mean Platelet Volume 9.8 fL (9.4-12.3); Monocytes Absolute Auto 0.8 X10*3/uL (0.1-1.2); Monocytes Percent Auto 17.8 % (2-11); Neutrophils Absolute Auto 2.5 x10*3/uL (2.0-8.3); Neutrophils Percent Auto 55.1 % (45-73); Platelet Count 292 X10*3/uL (160-400); Red Blood Count 3.26 X10*6/uL (4.20-5.50); Red Cell Distribution Width 14.6 % (11.0-16.0); White Blood Count 4.6 X10*3/uL (4.8-10.8)
[2025-01-03 07:37] LABS: Alanine Aminotransferase 10 U/L (0-31); Albumin Level 3.1 g/dL (3.5-5.0); Alkaline Phosphatase 59 U/L (39-117); Anion Gap 11 (12-20); Aspartate Amino Transferase 23 U/L (5-31); Bilirubin Total 0.4 mg/dL (0.0-1.0); Blood Urea Nitrogen 22 mg/dL (9-16); Calcium 8.6 mg/dL (8.4-10.2); Carbon Dioxide 24 mmol/L (22-29); Chloride 112 mmol/L (96-108); Estimated Glomerular Filt Rate > 60; Glucose Random 89 mg/dL (60-115); Potassium 4.1 mmol/L (3.3-5.1); Sodium 143 mmol/L (135-145); Total Protein 5.7 g/dL (6.5-8.0)
== END 2025-01-03 06:35 | disposition home or self-care (01) ==
LOC: HO.MMNH3L 06:34
PROVIDERS: Visit Provider Student in an Organized Health Care Education/Training Program
DX: E11.9 Type 2 diabetes mellitus without complications (principal); I25.10 Atherosclerotic heart disease of native coronary artery without angina pectoris; M62.50 Muscle wasting and atrophy, not elsewhere classified, unspecified site
CPT/HCPCS: 36415; 80053; 85025

== ENCOUNTER 2025-01-10 14:14 | Outpatient (REF) | payer MEDICARE, SELFPAY ==
[2025-01-10 06:22] LABS: MANUAL DIFF FLAG NO
[2025-01-10 07:01] LABS: Hematocrit 37.9 % (37.0-47.0); Hemoglobin 12.7 g/dl (12.0-16.0); Imm Gran Abs Auto 0.03 X10*3/uL (0.00-0.03); Imm Gran Pct Auto 0.3 % (0.0-0.4); Lymphocytes Absolute Auto 0.9 X10*3/uL (1.2-4.9); Mean Corpuscular HGB Conc 33.5 g/dl (31.0-35.0); Mean Corpuscular Hemoglobin 32.8 pg (27.0-33.0); Mean Corpuscular Volume 97.9 fL (80.0-98.0); NRBC Abs Auto 0.000 X10*3/uL (0.0-0.012); NRBC Pct Auto 0.0 /100WBC (0.0-0.2); Platelet Count 324 X10*3/uL (160-400); Red Blood Count 3.87 X10*6/uL (4.20-5.50); White Blood Count 9.3 X10*3/uL (4.8-10.8)
[2025-01-10 07:11] LABS: Alanine Aminotransferase 12 U/L (0-31); Albumin Level 4.0 g/dL (3.5-5.0); Alkaline Phosphatase 82 U/L (39-117); Anion Gap 13 (12-20); Aspartate Amino Transferase 22 U/L (5-31); Blood Urea Nitrogen 21 mg/dL (9-16); Calcium 9.5 mg/dL (8.4-10.2); Carbon Dioxide 26 mmol/L (22-29); Chloride 105 mmol/L (96-108); Estimated Glomerular Filt Rate > 60; Potassium 4.3 mmol/L (3.3-5.1); Sodium 140 mmol/L (135-145); Total Protein 6.8 g/dL (6.5-8.0)
--- OUTSIDE RECORDS SUMMARY | 2025-01-10 14:38 | XMS_ITS | Patient Health Record ---
Author Organization [facility] Address [address] [place] [phone] Care Team Providers Care Wall Covering Contractor Name Role Phone Tyson Goff MD Primary Care Provider Blair Tomas Jr Unavailable [phone] Allergies Allergen (clinical drug ingredient) Drug/Non Drug [...] Once a day Active Move Free Joint [facility] Advance - 1 Orally QAM Active Singulair [...] Problem Status W/U Status Risk Notes Problem 855881911 Colon cancer screening (Z12.11) Active confirmed Problem 078237476818791 assisted (current) use of aspirin (Z79.82) Active confirmed Problem 475310346767717 terminal supervisor (current) use of oral hypoglycemic drugs (Z79.84) Active confirmed Plan Of Treatment Future Test Test Name Order Date COLONOSCOPY 06/10/2018 Insurance Providers Payer Name Payer Address Payer Phone Subscriber Number Group Number Insured Name Patient Relationship to Insured Coverage Start Date Coverage End Date [place] [address] 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
== END 2025-01-10 14:15 | disposition home or self-care (01) ==
LOC: HO.MMNH3L 14:14
PROVIDERS: Visit Provider Student in an Organized Health Care Education/Training Program
DX: E11.9 Type 2 diabetes mellitus without complications (principal); I25.10 Atherosclerotic heart disease of native coronary artery without angina pectoris; M62.50 Muscle wasting and atrophy, not elsewhere classified, unspecified site
CPT/HCPCS: 36415; 80053; 85025

== ENCOUNTER 2025-01-17 06:29 | Outpatient (REF) | payer MEDICARE, SELFPAY ==
[2025-01-17 06:27] LABS: MANUAL DIFF FLAG NO
--- OUTSIDE RECORDS SUMMARY | 2025-01-17 06:30 | XMS_ITS | Patient Health Record ---
Author Organization [facility] Address [address] [place] [address] Care Team Providers Care Furnace Hand Name Role Phone Tyson Goff MD Primary Care Provider Balir Tomas Jr Unavailable Allergies Allergen (clinical drug [...] a day Active Move Free Joint [facility] Advance - 1 Orally QAM Active [...] Problem Status W/U Status Risk Notes Problem 994683095 Colon cancer screening (Z12.11) Active confirmed Problem 760934627111092 jail (current) use of aspirin (Z79.82) Active confirmed Problem 536544819522203 jail (current) use of oral hypoglycemic drugs (Z79.84) Active confirmed Plan Of Treatment Future Test Test Name Order Date COLONOSCOPY 06/10/2018 Insurance Providers Payer Name Payer Address Payer Phone Subscriber Number Group Number Insured Name Patient Relationship to Insured Coverage Start Date Coverage End Date [place] [address] 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
[2025-01-17 07:18] LABS: Hematocrit 33.6 % (37.0-47.0); Hemoglobin 11.1 g/dl (12.0-16.0); Imm Gran Abs Auto 0.01 X10*3/uL (0.00-0.03); Imm Gran Pct Auto 0.2 % (0.0-0.4); Lymphocytes Absolute Auto 1.4 X10*3/uL (1.2-4.9); Mean Corpuscular HGB Conc 33.0 g/dl (31.0-35.0); Mean Corpuscular Hemoglobin 32.7 pg (27.0-33.0); Mean Corpuscular Volume 99.1 fL (80.0-98.0); NRBC Abs Auto 0.000 X10*3/uL (0.0-0.012); NRBC Pct Auto 0.0 /100WBC (0.0-0.2); Platelet Count 344 X10*3/uL (160-400); Red Blood Count 3.39 X10*6/uL (4.20-5.50); White Blood Count 4.9 X10*3/uL (4.8-10.8)
[2025-01-17 07:48] LABS: Anion Gap 12 (12-20); Blood Urea Nitrogen 19 mg/dL (9-16); Calcium 9.0 mg/dL (8.4-10.2); Carbon Dioxide 26 mmol/L (22-29); Chloride 108 mmol/L (96-108); Estimated Glomerular Filt Rate > 60; Potassium 3.9 mmol/L (3.3-5.1); Sodium 142 mmol/L (135-145)
== END 2025-01-17 06:30 | disposition home or self-care (01) ==
LOC: HO.MMNH3L 06:29
PROVIDERS: Visit Provider Student in an Organized Health Care Education/Training Program
DX: E11.9 Type 2 diabetes mellitus without complications (principal); I25.10 Atherosclerotic heart disease of native coronary artery without angina pectoris; M62.50 Muscle wasting and atrophy, not elsewhere classified, unspecified site
CPT/HCPCS: 36415; 80048; 85025

== ENCOUNTER 2025-01-27 06:09 | Outpatient (REF) | payer MEDICARE, SELFPAY ==
--- OUTSIDE RECORDS SUMMARY | 2025-01-27 06:11 | XMS_ITS | Patient Health Record ---
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 (Z79.82) Active confirmed Problem 941761897509295 field tax auditor (current) use of oral hypoglycemic drugs (Z79.84) Active confirmed Plan Of Treatment Future Test Test Name Order Date COLONOSCOPY 06/10/2018 Insurance Providers Payer Name Payer Address Payer Phone Subscriber Number Group Number Insured Name Patient Relationship to Insured Coverage Start Date Coverage End Date [place] [address] [facility] [place] [address] [id number] STEPHEN SYLVESTER Self - patient is the insured MEDEX ATTN CLAIMS [address] [place] [address] [id number] STEPHEN SYLVESTER Self - patient is the insured Medical (General) History Medical History History ICD Code 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
[2025-01-27 07:12] LABS: Anion Gap 10 (12-20); Blood Urea Nitrogen 20 mg/dL (9-16); Calcium 9.4 mg/dL (8.4-10.2); Carbon Dioxide 27 mmol/L (22-29); Chloride 109 mmol/L (96-108); Estimated Glomerular Filt Rate > 60; Potassium 4.0 mmol/L (3.3-5.1); Sodium 142 mmol/L (135-145)
[2025-01-27 07:19] LABS: Hemoglobin A1C 122.0576 umol/L; Total Hemoglobin (HGBA1C) 3180.7324 umol/L
== END 2025-01-27 06:10 | disposition home or self-care (01) ==
LOC: HO.MMNH3L 06:09
PROVIDERS: Visit Provider Student in an Organized Health Care Education/Training Program
DX: I25.10 Atherosclerotic heart disease of native coronary artery without angina pectoris (principal); E11.9 Type 2 diabetes mellitus without complications; F03.90 Unspecified dementia, unspecified severity, without behavioral disturbance, psychotic disturbance, mood disturbance, and anxiety
CPT/HCPCS: 36415; 80048; 83036

== ENCOUNTER 2025-02-07 06:55 | Outpatient (REF) | payer MEDICARE, SELFPAY ==
[2025-02-07 06:11] LABS: MANUAL DIFF FLAG NO
--- OUTSIDE RECORDS SUMMARY | 2025-02-07 06:57 | XMS_ITS | Patient Health Record ---
Author Organization [facility] Address [address] [place] [address] Care Team Providers Care Blemish Remover Name Role Phone Shell (RETIRED) Tyson WANG Primary Care Provide r Blair Alvarenga Jr Unavailable [phone] Allergies Allergen (clinical drug ingredient) Drug/Non Drug [...] Once a day Active Move Free Joint [facility] Advance - 1 Orally QAM Active [...] Problem Status W/U Status Risk Notes Problem 254615757 Colon cancer screening (Z12.11) Active confirmed Problem 608465523622275 shelter (current) use of aspirin (Z79.82) Active confirmed Problem [id number] technician terminal and repeater (current) use of oral hypoglycemic drugs (Z79.84) Active confirmed Plan Of Treatment Future Test Test Name Order Date COLONOSCOPY 06/10/2018 Insurance Providers Payer Name Payer Address Payer Phone Subscriber Number Group Number Insured Name Patient Relationship to Insured Coverage Start Date Coverage End Date [place] [address] [facility] [place] [address] [phone] [id number] STEPHEN SYLVESTER Self - patient is the insured MEDEX ATTN CLAIMS [address] [place] [address] [id number] STEPHEN SYLVESTER Self - patient is the insured Medical (General) History Medical History History ICD Code 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
[2025-02-07 07:05] LABS: Hematocrit 40.1 % (37.0-47.0); Hemoglobin 13.3 g/dl (12.0-16.0); Imm Gran Abs Auto 0.02 X10*3/uL (0.00-0.03); Imm Gran Pct Auto 0.3 % (0.0-0.4); Lymphocytes Absolute Auto 1.7 X10*3/uL (1.2-4.9); Mean Corpuscular HGB Conc 33.2 g/dl (31.0-35.0); Mean Corpuscular Hemoglobin 32.4 pg (27.0-33.0); Mean Corpuscular Volume 97.8 fL (80.0-98.0); NRBC Abs Auto 0.000 X10*3/uL (0.0-0.012); NRBC Pct Auto 0.0 /100WBC (0.0-0.2); Platelet Count 301 X10*3/uL (160-400); Red Blood Count 4.10 X10*6/uL (4.20-5.50); White Blood Count 6.1 X10*3/uL (4.8-10.8)
[2025-02-07 07:14] LABS: Alanine Aminotransferase 19 U/L (0-31); Albumin Level 4.1 g/dL (3.5-5.0); Alkaline Phosphatase 80 U/L (39-117); Anion Gap 14 (12-20); Aspartate Amino Transferase 24 U/L (5-31); Blood Urea Nitrogen 25 mg/dL (9-16); Calcium 9.5 mg/dL (8.4-10.2); Carbon Dioxide 24 mmol/L (22-29); Chloride 108 mmol/L (96-108); Estimated Glomerular Filt Rate > 60; Potassium 4.1 mmol/L (3.3-5.1); Sodium 142 mmol/L (135-145); Total Protein 7.0 g/dL (6.5-8.0)
== END 2025-02-07 06:56 | disposition home or self-care (01) ==
LOC: HO.MMNH3L 06:55
PROVIDERS: Visit Provider Student in an Organized Health Care Education/Training Program
DX: I25.10 Atherosclerotic heart disease of native coronary artery without angina pectoris (principal); E11.9 Type 2 diabetes mellitus without complications; R62.7 Adult failure to thrive; M62.50 Muscle wasting and atrophy, not elsewhere classified, unspecified site
CPT/HCPCS: 36415; 80053; 85025

== ENCOUNTER 2025-02-14 07:12 | Outpatient (REF) | payer MEDICARE, SELFPAY ==
[2025-02-14 07:27] LABS: Hematocrit 38.9 % (37.0-47.0); Hemoglobin 12.6 g/dl (12.0-16.0); Mean Corpuscular HGB Conc 32.4 g/dl (31.0-35.0); Mean Corpuscular Hemoglobin 32.2 pg (27.0-33.0); Mean Corpuscular Volume 99.5 fL (80.0-98.0); NRBC Abs Auto 0.000 X10*3/uL (0.0-0.012); NRBC Pct Auto 0.0 /100WBC (0.0-0.2); Platelet Count 274 X10*3/uL (160-400); Red Blood Count 3.91 X10*6/uL (4.20-5.50); WBC ABN SCTR FOR CBC 1
[2025-02-14 07:50] LABS: Band Neutrophils Percent 0 % (3-5); Basophils Percent Manual 3 % (0-2); Eosinophils Percent Manual 18 % (0-4); Lymphocytes Percent Manual 23 % (20-40); Monocytes Percent Manual 12 % (2-11); Neutrophils Percent Manual 44 % (45-73)
[2025-02-14 07:52] LABS: RBC Morphology NORMAL
[2025-02-14 07:53] LABS: Basophils Abs Manual 0.2 X10*3/uL (0.0-0.2); Eosinophils Absolute Manual 1.1 X10*3/uL (0.0-0.4); Lymphocytes Absolute Manual 1.4 X10*3/uL (1.2-4.9); Monocytes Absolute Manual 0.7 X10*3/uL (0.1-1.2); Neutrophils Absolute Manual 2.6 X10*3/uL (2.0-8.3); White Blood Count 6.0 X10*3/uL (4.8-10.8)
[2025-02-14 07:56] LABS: Alanine Aminotransferase 13 U/L (0-31); Albumin Level 3.9 g/dL (3.5-5.0); Alkaline Phosphatase 76 U/L (39-117); Anion Gap 11 (12-20); Aspartate Amino Transferase 22 U/L (5-31); Blood Urea Nitrogen 19 mg/dL (9-16); Calcium 9.5 mg/dL (8.4-10.2); Carbon Dioxide 29 mmol/L (22-29); Chloride 108 mmol/L (96-108); Estimated Glomerular Filt Rate > 60; Potassium 4.1 mmol/L (3.3-5.1); Sodium 144 mmol/L (135-145); Total Protein 6.8 g/dL (6.5-8.0)
== END 2025-02-14 07:13 | disposition home or self-care (01) ==
LOC: HO.MMNH3L 07:12
PROVIDERS: Visit Provider Student in an Organized Health Care Education/Training Program
DX: E11.9 Type 2 diabetes mellitus without complications (principal); E46 Unspecified protein-calorie malnutrition; F03.90 Unspecified dementia, unspecified severity, without behavioral disturbance, psychotic disturbance, mood disturbance, and anxiety
CPT/HCPCS: 36415; 80053; 85007; 85027

== ENCOUNTER 2025-03-08 06:24 | Outpatient (REF) | payer MEDICARE, SELFPAY ==
[2025-03-08 06:09] LABS: MANUAL DIFF FLAG NO
[2025-03-08 06:22] LABS: Hematocrit 36.8 % (37.0-47.0); Hemoglobin 12.5 g/dl (12.0-16.0); Imm Gran Abs Auto 0.01 X10*3/uL (0.00-0.03); Imm Gran Pct Auto 0.2 % (0.0-0.4); Lymphocytes Absolute Auto 1.4 X10*3/uL (1.2-4.9); Mean Corpuscular HGB Conc 34.0 g/dl (31.0-35.0); Mean Corpuscular Hemoglobin 33.1 pg (27.0-33.0); Mean Corpuscular Volume 97.4 fL (80.0-98.0); NRBC Abs Auto 0.000 X10*3/uL (0.0-0.012); NRBC Pct Auto 0.0 /100WBC (0.0-0.2); Platelet Count 301 X10*3/uL (160-400); Red Blood Count 3.78 X10*6/uL (4.20-5.50); White Blood Count 6.0 X10*3/uL (4.8-10.8)
--- OUTSIDE RECORDS SUMMARY | 2025-03-08 06:32 | XMS_ITS | Patient Health Record ---
Author Organization [facility] Address [address] [place] [phone] Care Team Providers Care Forensic Chemist Name Role Phone Shell (RETIRED) Tyson WANG [...] Once a day Active Move Free Joint [facility] Advance - 1 Orally QAM Active [...] Problem Status W/U Status Risk Notes Problem 001022359 Colon cancer screening (Z12.11) Active confirmed Problem 250002387290315 buttermaker helper (current) use of aspirin (Z79.82) Active confirmed Problem 353086728829700 [facility] (current) use of oral hypoglycemic drugs (Z79.84) Active confirmed Plan Of Treatment Future Test Test Name Order Date COLONOSCOPY 06/10/2018 Insurance Providers Payer Name Payer Address Payer Phone Subscriber Number Group Number Insured Name Patient Relationship to Insured Coverage Start Date Coverage End Date [place] [address] [place] [address] [id number] STEPHEN SYLVESTER Self - patient is the insured MEDEX ATTN CLAIMS [address] [place] [address] [phone] [id number] STEPHEN SYLVESTER Self - patient is the insured Medical (General) History Medical History History ICD Code 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
[2025-03-08 06:42] LABS: Alanine Aminotransferase 15 U/L (0-31); Albumin Level 3.9 g/dL (3.5-5.0); Alkaline Phosphatase 73 U/L (39-117); Anion Gap 11 (12-20); Aspartate Amino Transferase 22 U/L (5-31); Blood Urea Nitrogen 19 mg/dL (9-16); Calcium 9.4 mg/dL (8.4-10.2); Carbon Dioxide 28 mmol/L (22-29); Chloride 106 mmol/L (96-108); Estimated Glomerular Filt Rate > 60; Potassium 4.0 mmol/L (3.3-5.1); Sodium 141 mmol/L (135-145); Total Protein 6.7 g/dL (6.5-8.0)
== END 2025-03-08 06:25 | disposition home or self-care (01) ==
LOC: HO.MMNH3L 06:24
PROVIDERS: Visit Provider Student in an Organized Health Care Education/Training Program
DX: I25.10 Atherosclerotic heart disease of native coronary artery without angina pectoris (principal); E11.9 Type 2 diabetes mellitus without complications; R62.7 Adult failure to thrive; M62.50 Muscle wasting and atrophy, not elsewhere classified, unspecified site
CPT/HCPCS: 36415; 80053; 85025

== ENCOUNTER 2025-03-14 05:57 | Outpatient (REF) | payer MEDICARE, SELFPAY ==
[2025-03-14 06:00] LABS: MANUAL DIFF FLAG NO
--- OUTSIDE RECORDS SUMMARY | 2025-03-14 06:00 | XMS_ITS | Patient Health Record ---
Author Organization [facility] Address [address] [place] [address] Care Team Providers Care Bat Person Name Role Phone Shell (RETIRED) Tyson WANG [...] Once a day Active Move Free Joint 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) Active confirmed Problem [id number] group home (current) use of oral hypoglycemic drugs (Z79.84) Active confirmed Plan Of Treatment Future Test Test Name Order Date COLONOSCOPY 06/10/2018 Insurance Providers Payer Name Payer Address Payer Phone Subscriber Number Group Number Insured Name Patient Relationship to Insured Coverage Start Date Coverage End Date [place] [address] [facility] [place] [address] [phone] [id number] STEPHEN SYLVESTER Self - patient is the insured MED[employer] ATTN CLAIMS [address] [place] [address] [id number] STEPHEN SYLVESTER Self - patient is the insured Medical (General) History Medical History History ICD Code 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
[2025-03-14 06:53] LABS: Alanine Aminotransferase 14 U/L (0-31); Albumin Level 3.6 g/dL (3.5-5.0); Alkaline Phosphatase 69 U/L (39-117); Anion Gap 13 (12-20); Aspartate Amino Transferase 21 U/L (5-31); Blood Urea Nitrogen 19 mg/dL (9-16); Calcium 9.2 mg/dL (8.4-10.2); Carbon Dioxide 28 mmol/L (22-29); Chloride 107 mmol/L (96-108); Estimated Glomerular Filt Rate > 60; Hematocrit 36.9 % (37.0-47.0); Hemoglobin 12.1 g/dl (12.0-16.0); Imm Gran Abs Auto 0.01 X10*3/uL (0.00-0.03); Imm Gran Pct Auto 0.2 % (0.0-0.4); Lymphocytes Absolute Auto 1.3 X10*3/uL (1.2-4.9); Mean Corpuscular HGB Conc 32.8 g/dl (31.0-35.0); Mean Corpuscular Hemoglobin 31.8 pg (27.0-33.0); Mean Corpuscular Volume 97.1 fL (80.0-98.0); NRBC Abs Auto 0.000 X10*3/uL (0.0-0.012); NRBC Pct Auto 0.0 /100WBC (0.0-0.2); Platelet Count 259 X10*3/uL (160-400); Potassium 4.6 mmol/L (3.3-5.1); Red Blood Count 3.80 X10*6/uL (4.20-5.50); Sodium 143 mmol/L (135-145); Total Protein 6.2 g/dL (6.5-8.0); White Blood Count 5.3 X10*3/uL (4.8-10.8)
== END 2025-03-14 05:58 | disposition home or self-care (01) ==
LOC: HO.MMNH3L 05:57
PROVIDERS: Visit Provider Student in an Organized Health Care Education/Training Program
DX: E11.9 Type 2 diabetes mellitus without complications (principal); M62.50 Muscle wasting and atrophy, not elsewhere classified, unspecified site; F03.90 Unspecified dementia, unspecified severity, without behavioral disturbance, psychotic disturbance, mood disturbance, and anxiety
CPT/HCPCS: 36415; 80053; 85025

== ENCOUNTER 2025-04-11 06:39 | Outpatient (REF) | payer MEDICARE, SELFPAY ==
[2025-04-11 06:46] LABS: Hematocrit 35.5 % (37.0-47.0); Hemoglobin 11.4 g/dl (12.0-16.0); Imm Gran Abs Auto 0.02 X10*3/uL (0.00-0.03); Imm Gran Pct Auto 0.4 % (0.0-0.4); Lymphocytes Absolute Auto 1.3 X10*3/uL (1.2-4.9); MANUAL DIFF FLAG SCAN; Mean Corpuscular HGB Conc 32.1 g/dl (31.0-35.0); Mean Corpuscular Hemoglobin 31.7 pg (27.0-33.0); Mean Corpuscular Volume 98.6 fL (80.0-98.0); NRBC Abs Auto 0.000 X10*3/uL (0.0-0.012); NRBC Pct Auto 0.0 /100WBC (0.0-0.2); Platelet Count 265 X10*3/uL (160-400); Red Blood Count 3.60 X10*6/uL (4.20-5.50); SCAN SMEAR FLAG 1; White Blood Count 5.0 X10*3/uL (4.8-10.8)
--- OUTSIDE RECORDS SUMMARY | 2025-04-11 06:48 | XMS_ITS | Patient Health Record ---
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) Active confirmed Problem [id number] penitentiary (current) use of oral hypoglycemic drugs (Z79.84) Active confirmed Plan Of Treatment Future Test Test Name Order Date COLONOSCOPY 06/10/2018 Insurance Providers Payer Name Payer Address Payer Phone Subscriber Number Group Number Insured Name Patient Relationship to Insured Coverage Start Date Coverage End Date [place] [address] [place] [address] [id number] STEPHEN SYLVESTER Self - patient is the insured MED[employer] ATTN CLAIMS [address] [place] [address] [id number] STEPHEN SYLVESTER Self - patient is the insured Medical (General) History Medical History History ICD Code 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
[2025-04-11 07:25] LABS: Anion Gap 12 (12-20); Blood Urea Nitrogen 24 mg/dL (9-16); Calcium 8.9 mg/dL (8.4-10.2); Carbon Dioxide 25 mmol/L (22-29); Chloride 109 mmol/L (96-108); Estimated Glomerular Filt Rate > 60; Potassium 3.8 mmol/L (3.3-5.1); Sodium 142 mmol/L (135-145)
== END 2025-04-11 06:40 | disposition home or self-care (01) ==
LOC: HO.MMNH3L 06:39
PROVIDERS: Visit Provider Student in an Organized Health Care Education/Training Program
DX: I25.10 Atherosclerotic heart disease of native coronary artery without angina pectoris (principal); E11.9 Type 2 diabetes mellitus without complications; M62.50 Muscle wasting and atrophy, not elsewhere classified, unspecified site; R62.7 Adult failure to thrive
CPT/HCPCS: 36415; 80048; 85025

== ENCOUNTER 2025-05-09 05:41 | Outpatient (REF) | payer MEDICARE, SELFPAY ==
[2025-05-09 05:38] LABS: MANUAL DIFF FLAG NO
--- OUTSIDE RECORDS SUMMARY | 2025-05-09 05:44 | XMS_ITS | Patient Health Record ---
Author Organization [facility] Address [address] [place] [phone] Care Team Providers Care Data Engineer Name Role Phone Shell (RETIRED) Tyson WANG Primary Care Provide r Blair Alvarenga Jr Unavailable [phone] Allergies Allergen (clinical drug ingredient) Drug/Non Drug [...] GM As directed Orally Over the specified time.; Duration: 1 day(s) Active Fexofenadine HCl 180 MG 1 tablet as need ed Orally Once a day Active Fluticasone Propionate 50 MCG/DOSE 1 spray in each nostril Nasally Once a day Active Simvastatin 10 MG 1 tablet in the even ing Orally Once a day Active Move Free Joint [facility] Advance - 1 Orally QAM Active Singulair [...] Problem Status W/U Status Risk Notes Problem Colon cancer screening (801824555) Colon cancer screening (Z12.11) Active confirmed Problem Long-term current use of antiplatelet drug (264225203144821 ) jail (current) use of aspirin (Z79.82) Active confirmed Problem Long-term current use of drug therapy (702168249) terminal gauger supervisor (current) use of oral hypoglycemic drugs (Z79.84) Active confirmed Plan Of Treatment Future Test Test Name Order Date COLONOSCOPY 06/10/2018 Insurance Providers Payer Name Payer Address Payer Phone Subscriber Number Group Number Insured Name Patient Relationship to Insured Coverage Start Date Coverage End Date [place] [address] [place] [address] [id number] STEPHEN SYLVESTER Self - patient is the insured MEDEX ATTN CLAIMS [address] [place] [address] [phone] [id number] STEPHEN SYLVESTER Self - patient is the insured Medical (General) History Medical History History ICD Code 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
[2025-05-09 06:27] LABS: Hematocrit 38.2 % (37.0-47.0); Hemoglobin 12.3 g/dl (12.0-16.0); Imm Gran Abs Auto 0.02 X10*3/uL (0.00-0.03); Imm Gran Pct Auto 0.4 % (0.0-0.4); Lymphocytes Absolute Auto 1.0 X10*3/uL (1.2-4.9); Mean Corpuscular HGB Conc 32.2 g/dl (31.0-35.0); Mean Corpuscular Hemoglobin 31.7 pg (27.0-33.0); Mean Corpuscular Volume 98.5 fL (80.0-98.0); NRBC Abs Auto 0.000 X10*3/uL (0.0-0.012); NRBC Pct Auto 0.0 /100WBC (0.0-0.2); Platelet Count 280 X10*3/uL (160-400); Red Blood Count 3.88 X10*6/uL (4.20-5.50); White Blood Count 5.7 X10*3/uL (4.8-10.8)
[2025-05-09 06:44] LABS: Alanine Aminotransferase 15 U/L (0-31); Albumin Level 3.9 g/dL (3.5-5.0); Alkaline Phosphatase 69 U/L (39-117); Anion Gap 11 (12-20); Aspartate Amino Transferase 20 U/L (5-31); Blood Urea Nitrogen 30 mg/dL (9-16); Calcium 9.2 mg/dL (8.4-10.2); Carbon Dioxide 26 mmol/L (22-29); Chloride 107 mmol/L (96-108); Estimated Glomerular Filt Rate > 60; Potassium 4.2 mmol/L (3.3-5.1); Sodium 140 mmol/L (135-145); Total Protein 6.5 g/dL (6.5-8.0)
== END 2025-05-09 05:42 | disposition home or self-care (01) ==
LOC: HO.MMNH3L 05:41
PROVIDERS: Visit Provider Student in an Organized Health Care Education/Training Program
DX: I25.10 Atherosclerotic heart disease of native coronary artery without angina pectoris (principal); E11.9 Type 2 diabetes mellitus without complications; M62.50 Muscle wasting and atrophy, not elsewhere classified, unspecified site; R62.7 Adult failure to thrive
CPT/HCPCS: 36415; 80053; 85025

== ENCOUNTER 2025-06-06 08:53 | Outpatient (REF) | payer MEDICARE, SELFPAY ==
[2025-06-06 07:40] LABS: Hematocrit 35.1 % (37.0-47.0); Hemoglobin 11.5 g/dl (12.0-16.0); Imm Gran Abs Auto 0.02 X10*3/uL (0.00-0.03); Imm Gran Pct Auto 0.3 % (0.0-0.4); Lymphocytes Absolute Auto 1.2 X10*3/uL (1.2-4.9); MANUAL DIFF FLAG NO; Mean Corpuscular HGB Conc 32.8 g/dl (31.0-35.0); Mean Corpuscular Hemoglobin 31.7 pg (27.0-33.0); Mean Corpuscular Volume 96.7 fL (80.0-98.0); NRBC Abs Auto 0.000 X10*3/uL (0.0-0.012); NRBC Pct Auto 0.0 /100WBC (0.0-0.2); Platelet Count 271 X10*3/uL (160-400); Red Blood Count 3.63 X10*6/uL (4.20-5.50); White Blood Count 5.7 X10*3/uL (4.8-10.8)
[2025-06-06 08:11] LABS: Alanine Aminotransferase 12 U/L (0-31); Albumin Level 3.5 g/dL (3.5-5.0); Alkaline Phosphatase 71 U/L (39-117); Anion Gap 12 (12-20); Aspartate Amino Transferase 17 U/L (5-31); Blood Urea Nitrogen 18 mg/dL (9-16); Calcium 9.0 mg/dL (8.4-10.2); Carbon Dioxide 28 mmol/L (22-29); Chloride 106 mmol/L (96-108); Estimated Glomerular Filt Rate > 60; Potassium 3.7 mmol/L (3.3-5.1); Sodium 142 mmol/L (135-145); Total Protein 6.0 g/dL (6.5-8.0)
== END 2025-06-06 08:54 | disposition home or self-care (01) ==
LOC: HO.MMNH3L 08:53
PROVIDERS: Visit Provider Physician Assistant Medical
DX: I25.10 Atherosclerotic heart disease of native coronary artery without angina pectoris (principal); E11.9 Type 2 diabetes mellitus without complications; R62.7 Adult failure to thrive; M62.50 Muscle wasting and atrophy, not elsewhere classified, unspecified site
CPT/HCPCS: 36415; 80053; 85025

== ENCOUNTER 2025-07-05 12:00 | Outpatient (REF) | payer MEDICARE, SELFPAY ==
--- OUTSIDE RECORDS SUMMARY | 2025-07-05 19:06 | XMS_ITS | Patient Health Record ---
Author Organization [facility] Address [address] [place] [address] Care Team Providers Care Bit Gatherer Name Role Phone Shell (RETIRED) Tyson WANG Primary Care Provide r Blair Alvarenga Jr Unavailable Allergies Allergen (clinical drug ingredient) Drug/Non Drug Allergy documented on EMR Reaction Allergy Type Onset Date Status isoniazid INH (uncoded) Unknown Allergy Active seasonal (uncoded) Unknown Allergy A ctive gabapentin Gabapentin Unknown Drug Allergy Activ e Reason For Referral No Information Medications Medication SIG (Take, Route, Frequency, Duration) Notes Start Date End Date Status Breo Ellipta 100-25 MCG/INH Aerosol Powder Breath Activated 1 puff Inhalation Once a day Active Colyte with Flavor Packs 240 GM Solution Reconstituted As directed Orally Over the specified time.; Duration: 1 day(s) Active Fexofenadine HCl 180 MG Tablet 1 tablet as needed Orally Once a day Active Fluticasone Propionate 50 MCG/DOSE Suspension 1 spray in each nostril Nasally Once a day Active Simvastatin 10 MG Tablet 1 tablet in the evening Orally Once a day Active Move Free Joint [facility] Advance - Tablet 1 Orally QAM Active Singulair 10 MG Tablet 1 tablet Orally O nce a day Active Vision Formula - Tablet 1 Orally QD Active Lasix 20 MG Tablet 1 tablet Orally Once a day Active glipiZIDE XL 5 MG Tablet Extended Release 24 Hour 1 tablet Orally Once a day Active Aspir-81 81 MG Tablet Delayed Release 1 tablet Orally Once a day Active Latanoprost 0.005 % Solution 1 drop into affected eye in the evening Ophthalmic Once a day Active FLUoxetine HCl 20 MG Capsule 1 capsule O rally Once a day Active DSS 100 MG Capsule 1 capsule as needed Orally Once a day Active Lisinopril 20 MG Tablet 1 tablet Orally Once a day Active Centrum Silver - Tablet Chewable 1 Orally QD Active Proventil HFA 108 (90 Base) MCG/ACT Aerosol Solution 2 puffs as needed Inhalation every 6 hrs Active Citracal Plus - Tablet 2 Orally QD Active Immunizations Vaccine Route Administration Date Status Comme nts Influenza Unknown 05/11/2018 Administered Social History Tobacco Use: Social History Observation Description Date Details (start date - stop date) Never Smoker NA - NA Social History Drugs/Alcohol: Social Info Question Answer Notes Alcohol Screen Did you have a drink containing alcohol in the past year? No Points 0 Interpretation Negative Tobacco Use: Social Info Question Answer Notes Tobacco Use/Smoking Patient is a nonsmoker Additional Details Category Social Info Options Details Miscellaneous: Marital status: single Occupation: retired Problems Problem Type SNOMED Code ICD Code Onset Dates Problem Status W/U Status Risk Notes Problem Colon cancer screening (746528926) Colon cancer screening (Z12.11) Active confirmed Problem Long-term current use of antiplatelet drug (351447978491111 ) retirement (current) use of aspirin (Z79.82) Active confirmed Problem Long-term current use of drug therapy (272309476) retirement (current) use of oral hypoglycemic drugs (Z79.84) Active confirmed Plan Of Treatment Future Test Test Name Order Date COLONOSCOPY 06/10/2018 Insurance Providers Payer Name Payer Address Payer Phone Subscriber Number Group Number Insured Name Patient Relationship to Insured Coverage Start Date Coverage End Date [place] [address] [place] [address] [phone] [id number] NGA STEPHEN Self - patient is the insured MED[employer] ATTN CLAIMS [address] [place] [address] [id number] STEPHEN SYLVESTER Self - patient is the insured Medical (General) History Medical History History ICD Code 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
[2025-07-06 11:16] LABS: Chlamydia pneumoniae PCR Not Detected (Not Detect.); Coronavirus 229E PCR Not Detected (Not Detect.); Coronavirus HKU1 PCR Not Detected (Not Detect.); Coronavirus NL63 PCR Not Detected (Not Detect.); Coronavirus OC43 PCR Not Detected (Not Detect.); RSV PCR Not Detected (Not Detect.); Rhino/Enterovirus PCR Not Detected (Not Detect.); SARS-CoV-2 PCR Not Detected (Not Detect.)
[2025-07-06 11:23] LABS: Influenza A H1 PCR Not Detected (Not Detect.); Influenza A H1-2009 PCR Not Detected (Not Detect.); Influenza A H3 PCR Not Detected (Not Detect.)
== END 2025-07-05 12:01 ==
LOC: HO.MMNH3L 12:00
PROVIDERS: Visit Provider Student in an Organized Health Care Education/Training Program
DX: E11.9 Type 2 diabetes mellitus without complications (principal); I25.10 Atherosclerotic heart disease of native coronary artery without angina pectoris; K62.1 Rectal polyp
CPT/HCPCS: 87633

== ENCOUNTER 2025-07-06 07:14 | Outpatient (REF) | payer MEDICARE, SELFPAY ==
[2025-07-06 07:16] LABS: MANUAL DIFF FLAG NO
--- OUTSIDE RECORDS SUMMARY | 2025-07-06 07:16 | XMS_ITS | Patient Health Record ---
Author Organization [facility] Address [address] [place] [phone] Care Team Providers Care Systems Admin Name Role Phone Shell (RETIRED) Tyson WANG [...] Once a day Active Move Free Joint [facility] Advance - Tablet 1 Orally QAM [...] Status Risk Notes Problem Colon cancer screening (458157942) Colon cancer screening (Z12.11) Active confirmed Problem Long-term current use of antiplatelet drug (715089048285424 ) [facility] (current) use of aspirin (Z79.82) Active confirmed Problem Long-term current use of drug therapy (752384839) [facility] (current) use of oral hypoglycemic drugs (Z79.84) Active confirmed Plan Of Treatment Future Test Test Name Order Date COLONOSCOPY 06/10/2018 Insurance Providers Payer Name Payer Address Payer Phone Subscriber Number Group Number Insured Name Patient Relationship to Insured Coverage Start Date Coverage End Date [place] [address] [place] [address] [id number] NGA STEPHEN Self - patient is the insured MED[employer] ATTN CLAIMS [address] [place] [address] [id number] STEPHEN SYLVESTER Self - patient is the insured Medical (General) History Medical History History ICD Code 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
[2025-07-06 07:31] LABS: Hematocrit 40.0 % (37.0-47.0); Hemoglobin 13.3 g/dl (12.0-16.0); Imm Gran Abs Auto 0.03 X10*3/uL (0.00-0.03); Imm Gran Pct Auto 0.5 % (0.0-0.4); Lymphocytes Absolute Auto 1.1 X10*3/uL (1.2-4.9); Mean Corpuscular HGB Conc 33.3 g/dl (31.0-35.0); Mean Corpuscular Hemoglobin 31.6 pg (27.0-33.0); Mean Corpuscular Volume 95.0 fL (80.0-98.0); NRBC Abs Auto 0.000 X10*3/uL (0.0-0.012); NRBC Pct Auto 0.0 /100WBC (0.0-0.2); Platelet Count 309 X10*3/uL (160-400); Red Blood Count 4.21 X10*6/uL (4.20-5.50); White Blood Count 5.6 X10*3/uL (4.8-10.8)
[2025-07-06 07:43] LABS: Alanine Aminotransferase 15 U/L (0-31); Albumin Level 3.8 g/dL (3.5-5.0); Alkaline Phosphatase 79 U/L (39-117); Anion Gap 11 (12-20); Aspartate Amino Transferase 23 U/L (5-31); Blood Urea Nitrogen 16 mg/dL (9-16); Calcium 9.7 mg/dL (8.4-10.2); Carbon Dioxide 29 mmol/L (22-29); Chloride 106 mmol/L (96-108); Estimated Glomerular Filt Rate > 60; Potassium 4.3 mmol/L (3.3-5.1); Sodium 142 mmol/L (135-145); Total Protein 6.6 g/dL (6.5-8.0)
== END 2025-07-06 07:15 | disposition home or self-care (01) ==
LOC: HO.MMNH3L 07:14
PROVIDERS: Visit Provider Physician Assistant Medical
DX: E11.9 Type 2 diabetes mellitus without complications (principal); E46 Unspecified protein-calorie malnutrition
CPT/HCPCS: 36415; 80053; 83036; 85025